=== PATIENT | female | born 1940 | race Caucasian/White ===

== ENCOUNTER 2021-12-03 13:15 | Inpatient (IN) | payer MEDICARE ==
[~2021-12-03] VITALS: Ht 165.1 cm; Wt 62.1 kg
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
[2021-12-03 15:03] VITALS: BP 136/80
[2021-12-03] MEDS ORDERED: MAG HYDROX/AL HYDROX/SIMETH 30 ML ORAL.SUSP PO PRN (15:15)
[2021-12-03] MEDS ORDERED: MAGNESIUM HYDROXIDE 2,400 MG/30 ML ORAL.SUSP. PO PRN (15:15)
[2021-12-03] MEDS ORDERED: METHYL SALICYLATE/MENTHOL TOPICAL OINTMENT 57GM TUBE. TP PRN (15:15)
[2021-12-03] MEDS ORDERED: DOCUSATE SODIUM 100 MG CAPSULE PO PRN (16:15)
[2021-12-03] MEDS ORDERED: DIPHENOXYLATE/ATROPINE TABLET. PO PRN (16:15)
[2021-12-03] MEDS ORDERED: SIMV40TA18 PO (16:57)
[2021-12-03] MEDS ORDERED: DIPH1TAB PO (16:57)
[2021-12-03] MEDS ORDERED: CHOL500016 PO (16:57)
[2021-12-03] MEDS ORDERED: GLUC1CAP18 PO (16:57)
[2021-12-03] MEDS ORDERED: MULT-445 PO (16:57)
[2021-12-03] MEDS ORDERED: LOSA50TA86 PO (16:57)
[2021-12-03] MEDS ORDERED: MEMA10TA PO (16:57)
[2021-12-03] MEDS ORDERED: DONE10TA7 PO (16:57)
[2021-12-03] MEDS ORDERED: DOCU-109 PO (16:57)
[2021-12-03] MEDS ORDERED: ACET1TAB33 PO (16:57)
[2021-12-03] MEDS ORDERED: ACETAMINOPHEN/CODEINE 300/30MG TABLET PO PRN (17:00)
[2021-12-03] MEDS: DONEPEZIL HCL 10 MG TABLET PO SCH (20:09)
[2021-12-03] MEDS: MEMANTINE 5 MG TABLET. PO SCH (20:09)
[2021-12-03 20:21] LABS: BASO % 1 % (0-3); EOS % 1 % (0-3); HEMATOCRIT 35.3 % (36.0-47.0); HEMOGLOBIN 11.9 g/dL (12.0-15.5); LYMPH # 1.7 x10^3/uL (1.0-4.8); LYMPH % 21 % (24-48); MEAN CORPUSCULAR HEMOGLOBIN 31 pg (25-35); MEAN CORPUSCULAR HGB CONC 34 g/dL (31-37); MEAN CORPUSCULAR VOLUME 91 fL (79-100); MONO # 0.6 x10^3/uL (0.0-1.1); MONO % 8 % (0-9); NEUT # 5.4 x10^3uL (1.8-7.7); NEUT % 70 % (31-73); PLATELET COUNT 331 x10^3/uL (140-400); RED BLOOD COUNT 3.87 x10^6/uL (3.50-5.40); RED CELL DISTRIBUTION WIDTH 12.6 % (11.5-14.5); WHITE BLOOD COUNT 7.8 x10^3/uL (4.0-11.0)
[2021-12-03 20:34] LABS: ALBUMIN 3.7 g/dL (3.4-5.0); ALBUMIN/GLOBULIN RATIO 1.1 (1.0-1.7); CALCIUM 8.7 mg/dL (8.5-10.1); CREATININE 0.8 mg/dL (0.6-1.0); GFR 68.5; MAGNESIUM 2.1 mg/dL (1.8-2.4); TOTAL BILIRUBIN 0.3 mg/dL (0.2-1.0); TOTAL PROTEIN 7.1 g/dL (6.4-8.2)
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
[2021-12-04 06:13] VITALS: BP 181/84
--- NOTE | 2021-12-04 08:02 | EKG ---
[address] [address] Test Date: 2021-12-04 Test Time: 07:59:32 Pat Name: VANESSA LE Department: Room: [address] [place] [address] Gender: F Loom Technician: : 1940 Requested By: MARYELLEN SPENCER Order Number: [id number] Reading MD: Warren Cline Measurements Intervals [place] Rate: 68 P: 114 OR: 130 QRS: -16 QRSD: 74 T: 37 QT: 404 QTc: 434 Interpretive Statements SINUS RHYTHM LEFT ATRIAL ABNORMALITY LEFTWARD AXIS Electronically Signed On 12-06-2021 15:08:14 CABLE MECHANIC by Warren Cline
[2021-12-04] MEDS: GLUCOSAMINE/CHOND 500/400MG CAPSULE PO SCH (08:55)
[2021-12-04] MEDS: CHOLECALCIFEROL (VITAMIN D3) 1,000 UNIT TABLET PO SCH (08:55)
[2021-12-04] MEDS: SIMVASTATIN 40 MG TABLET. PO SCH (08:55)
[2021-12-04] MEDS: LOSARTAN 50 MG TABLET. PO SCH (08:55)
[2021-12-04] MEDS: MULTIVITAMIN with MINERAL TABLET. PO SCH (08:55)
[2021-12-04 12:10] LABS: THYROXINE 8.5 ug/dL (4.5-12.0)
[2021-12-04 15:28] LABS: THYROID STIM HORMONE (TSH) 3.206 uIU/mL (0.358-3.740)
[2021-12-04 15:41] VITALS: BP 150/77
--- NOTE | 2021-12-04 18:30 | NUR ---
Patient has been disorganized, restless, and pleasantly confused throughout this shift. She has been resistive to cares, possibly related to chronic low back pain. Patient has had a poor appetite at meals but accepted Ensures when offered. Patient was social with peers and interactive with staff for most of the day, she did not answer MD's questions during rounds. Will continue to monitor and report to oncoming shift.
[2021-12-04 18:52] LABS: BACTERIA,URINE MANY /HPF (0-FEW); BILIRUBIN,URINE NEG (NEG); CLARITY,URINE TURBID; COLOR,URINE YELLOW; GLUCOSE,URINE NEG (NEG); NITRITE,URINE POS (NEG); RBC,URINE 0 /HPF (0-2); SQUAMOUS EPITHELIAL CELL,UR OCC /LPF; UROBILINOGEN,URINE 0.2 mg/dL (0.2 mg/dL)
[2021-12-04] MEDS: MEMANTINE 5 MG TABLET. PO SCH (20:47)
[2021-12-04] MEDS: DONEPEZIL HCL 10 MG TABLET PO SCH (20:47)
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
[2021-12-05 01:09] LABS: HEMOGLOBIN A1C 5.9 % (4.8-5.6)
[2021-12-05 06:31] VITALS: BP 154/79
[2021-12-05] MEDS: LOSARTAN 50 MG TABLET. PO SCH (09:15)
[2021-12-05] MEDS: CHOLECALCIFEROL (VITAMIN D3) 1,000 UNIT TABLET PO SCH (09:15)
[2021-12-05] MEDS: SIMVASTATIN 40 MG TABLET. PO SCH (09:15)
[2021-12-05] MEDS: MULTIVITAMIN with MINERAL TABLET. PO SCH (09:15)
[2021-12-05] MEDS: GLUCOSAMINE/CHOND 500/400MG CAPSULE PO SCH (09:15)
--- NOTE | 2021-12-05 09:58 | NUR ---
Nurse Note: Pt was too confused to understand how to take her medication for morning medications. After encouragement and time spent with pt, pt was still unable to understand how to take her medication, and was unable to take some due to being too confused.
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
--- NOTE | 2021-12-05 15:20 | NUR ---
Nurse Day Shift Note: Pt presents with pleasantly confused mood/affect. Pt is encouraged to eat her meals, however pt has a very difficult time grasping the concept to eat her food. Pt behaves agreeably, yet, appears to not understand what the food on her plate is for. Pt is encouraged to eat, and might take a small bite, but generally shows no interest in eating, due to being confused about what the food is for. Pt is given ensures, and encouraged to drink those. Pt is noted to spend time in her room and in the hallway during the day. Pt is low-weston on the unit. Pt slept 3.75 hours last night. Will continue to monitor.
[2021-12-05 16:04] VITALS: BP 150/90
[2021-12-05] MEDS: DONEPEZIL HCL 10 MG TABLET PO SCH (20:46)
[2021-12-05] MEDS: MEMANTINE 5 MG TABLET. PO SCH (20:46)
--- NOTE | 2021-12-05 22:19 | PN ---
DATE: 12/05/2021 SUBJECTIVE: The patient is seen today, met with the staff. Chart reviewed. Staff reports increased confusion, not able to follow directions, needing assistance with ADLs. Also difficult to redirect. OBSERVATION: VITAL SIGNS: Temperature 98.3, blood pressure 157/77, pulse 77, respirations 20, O2 sat 94%. GENERAL: Slept about 4 hours last night. The patient is somewhat unsteady, but able to walk. She is wandering and not able to think clearly. Affect inappropriate at times. The patient not able to follow directions. The patient also having problems with executive functioning. The patient is needing assistance with ADLs. LABORATORY DATA: The patient's lab reviewed. The patient's hemoglobin was 11.9. The patient's hemoglobin A1c was 5.9. The patient also has hyperlipidemia. The patient's urinalysis showed protein, trace of blood and 5-10, white cell count. CURRENT MEDICATIONS: The patient's current medications include Namenda 5 mg at night, Aricept 10 mg at night. The patient is not having any side effects. The patient has not received any p.r.n. medications. The patient is under observation. We will consider increasing Namenda. ASSESSMENT: 1. Major neurocognitive disorder, most likely Alzheimer's versus vascular with behavior problems. 2. Generalized anxiety disorder. PLAN: Continue treatment. LENGTH OF STAY: 7-10 days. JACEY ROCHA: Lesly TID: [id number]
--- NOTE | 2021-12-05 22:40 | NUR ---
Nursing Note Pt unable to understand what spoon or drinking cup are. Gets increasingly angry with attempts to help or show her how to eat and drink. Swats at cup and spoon, takes applesauce and rubs into her skin as though it is hand lotion. Pt talks in a word salad nothing at all intelligible. Very easily agitated and combative with staff.
[2021-12-06 06:15] VITALS: BP 143/86
[2021-12-06] MEDS: LOSARTAN 50 MG TABLET. PO SCH (09:02)
[2021-12-06] MEDS: MULTIVITAMIN with MINERAL TABLET. PO SCH (09:02)
[2021-12-06] MEDS: GLUCOSAMINE/CHOND 500/400MG CAPSULE PO SCH (09:02)
[2021-12-06] MEDS: CHOLECALCIFEROL (VITAMIN D3) 1,000 UNIT TABLET PO SCH (09:02)
[2021-12-06] MEDS: SIMVASTATIN 40 MG TABLET. PO SCH (09:02)
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
--- NOTE | 2021-12-06 12:08 | NUR ---
Nsg Note; UTI U?A culture results called to dr Orr who started pt on Levaquin PO x 5 days
[2021-12-06] MEDS: levoFLOXacin 250 MG TABLET PO SCH (13:33)
--- NOTE | 2021-12-06 14:00 | NUR ---
Nsg Note; Violeta is confused and unable to follow simple directions, such as put the pill in your mouth, take a drink of water, and swallow. I had to put the pill in her mouth, put the cup of water to her mouth, then she took a drink and swished it around without swallowing. It took many prompts and encouragement to swallow, which she did, then spit the pill out. I then crushed the pill and gave it to her in a bite of pudding which she then swallowed.
[2021-12-06 15:55] VITALS: BP 133/88
[2021-12-06] MEDS: MEMANTINE 5 MG TABLET. PO SCH (21:06)
[2021-12-06] MEDS: DONEPEZIL HCL 10 MG TABLET PO SCH (21:06)
--- NOTE | 2021-12-07 01:37 | PN ---
DATE: 12/06/2021 SUBJECTIVE: The patient was seen today, met with the staff, chart reviewed and also participated in the treatment review meeting. Staff reports she continues to be confused, inability to communicate tend to isolate herself and also wandering and unsteady gait, but no falls. The patient also needing assistance with ADLs. She is also incontinent of bladder and bowels. OBSERVATION: VITAL SIGNS: Temperature 98.2, blood pressure 143/86, pulse 84, respirations 16, O2 sat 94%. GENERAL: Slept about 7 hours last night. The patient's appetite decreased. LABORATORY DATA: The patient's lab reviewed. CURRENT MEDICATIONS: The patient's current medications include Levaquin 250 mg daily, Namenda 5 mg at night, Aricept 10 mg at night. She is also on Zocor 40 mg daily and vitamin D 5000 units daily. The patient is not having any side effects. The patient's symptom is mildly advanced dementia with severe cognitive deficits and also limited executive functions. The patient is needing assistance with ADLs. ASSESSMENT: 1. Major neurocognitive disorder, most likely Alzheimer's versus vascular with behavior problems: 2. Generalized anxiety disorder. PLAN: Continue with the treatment. LENGTH OF STAY: 7-10 days. RADHA/CARYN DR: Lesly TID: [id number]
--- NOTE | 2021-12-07 03:30 | NUR ---
Nursing Note The patient was disorganized but cooperative this shift. The patient took her medication crushed in pudding. The patient was alert to self only. The patient has not slept this shift; instead has laid in bed awake staring at the ceiling. The patient is currently awake laying in bed.
[2021-12-07] MEDS: levoFLOXacin 250 MG TABLET PO SCH (05:23)
[2021-12-07 06:27] VITALS: BP 161/99
[2021-12-07] MEDS: GLUCOSAMINE/CHOND 500/400MG CAPSULE PO SCH (08:02)
[2021-12-07] MEDS: CHOLECALCIFEROL (VITAMIN D3) 1,000 UNIT TABLET PO SCH (08:03)
[2021-12-07] MEDS: LOSARTAN 50 MG TABLET. PO SCH (08:03)
[2021-12-07] MEDS: SIMVASTATIN 40 MG TABLET. PO SCH (08:03)
[2021-12-07] MEDS: MULTIVITAMIN with MINERAL TABLET. PO SCH (08:03)
--- NOTE | 2021-12-07 11:25 | NUR ---
Nursing Not Pt lying in bed not eating, also is not up and busy this am like she had been. Eyes seem glassy, rimmed in red somewhat. Spoke with updated him on condition and confusion level.
--- NOTE | 2021-12-07 23:30 | NUR ---
Patient is in the hallway on assumption of care, sitting in a chair. She is very disorganized, confused. Answers to her name but cannot state her last name or . Instructed patient that she needed to return to her room, and she was unable to follow direction. She is fiddling around with a snack wrapper, trying to use it as a handheld mirror. She is compliant with physical assessments but is unable to answer most other assessment questions. Patient appears to be sleeping comfortably at present time. Will continue to monitor.
--- NOTE | 2021-12-08 02:46 | PN ---
DATE: 12/07/2021 SUBJECTIVE: Staff reports that the patient is staying in bed most of the time, not eating. The patient is confused, difficult to redirect. OBSERVATION: VITAL SIGNS: Temperature 97.6, blood pressure 161/99, pulse 75, respirations 22, O2 sat 96%. GENERAL: Slept about an hour last night. LABORATORY DATA: The patient's lab reviewed. No change from prior readings. CURRENT MEDICATIONS: Include levofloxacin 250 mg daily for UTI. The patient is still under observation, monitoring her behavior, not needing any psychotropic drugs, at this time control her behavior. ASSESSMENT: 1. Major neurocognitive disorder, most likely Alzheimer's versus vascular with behavior problems: 2. Generalized anxiety disorder. PLAN: To continue with treatment. LENGTH OF STAY: 7-[address] RADHA/CARYN DR: Lesly TID: [id number]
[2021-12-08] MEDS: levoFLOXacin 250 MG TABLET PO SCH ×2 (05:20→06:00)
[2021-12-08 06:28] VITALS: BP 155/94
[2021-12-08] MEDS: SIMVASTATIN 40 MG TABLET. PO SCH ×2 (07:21→20:11)
--- NOTE | 2021-12-08 07:21 | NUR ---
Simvastatin 40mg tablet held pending discussion with Dr Orr about changing dose schedule to HS.
[2021-12-08] MEDS: LOSARTAN 50 MG TABLET. PO SCH (07:35)
[2021-12-08] MEDS: GLUCOSAMINE/CHOND 500/400MG CAPSULE PO SCH (07:35)
--- NOTE | 2021-12-08 08:25 | NUR ---
Pt in bed sleeping. Breathing even, equal and unlabored. No signs of pain or distress. Shift assessment and medication administration pending. Will continue to monitor.
[2021-12-08] MEDS: MULTIVITAMIN with MINERAL TABLET. PO SCH (09:00)
[2021-12-08] MEDS: CHOLECALCIFEROL (VITAMIN D3) 1,000 UNIT TABLET PO SCH (09:00)
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
[2021-12-08 16:21] VITALS: BP 124/78
[2021-12-08] MEDS: LACTOBACILLUS RHAMNOSUS GG 1 CAPSULE. PO SCH (20:11)
[2021-12-08] MEDS: DOXYCYCLINE HYCLATE 100 MG TABLET PO SCH (20:12)
--- NOTE | 2021-12-08 23:15 | NUR ---
Patient is in the hallway on assumption of care, sitting in a chair. She is very disorganized, confused. Answers to her name but cannot state her last name or . She is compliant with physical assessments but is unable to answer most other assessment questions. Compliant with medications crushed in pudding. Patient appears to be sleeping comfortably at present time. Will continue to monitor.
[2021-12-09 06:42] VITALS: BP 147/85
[2021-12-09] MEDS: DOXYCYCLINE HYCLATE 100 MG TABLET PO SCH ×2 (08:57→20:22)
[2021-12-09] MEDS: MULTIVITAMIN with MINERAL TABLET. PO SCH (08:57)
[2021-12-09] MEDS: LOSARTAN 50 MG TABLET. PO SCH (08:57)
[2021-12-09] MEDS: CHOLECALCIFEROL (VITAMIN D3) 1,000 UNIT TABLET PO SCH (08:57)
[2021-12-09] MEDS: GLUCOSAMINE/CHOND 500/400MG CAPSULE PO SCH (08:58)
[2021-12-09] MEDS: LACTOBACILLUS RHAMNOSUS GG 1 CAPSULE. PO SCH ×2 (08:58→20:22)
--- NOTE | 2021-12-09 15:01 | NUR ---
Nsg Note; Violeta is very confused, knowing her first name only. When given a meal tray, she does not know how to use the utensils to get food to her mouth. We feed her but she will only take a few bites and sips of fluids. She has been awake and alert today, mostly sitting in the chair in her room or walking around the room. She self toilets
[2021-12-09 16:19] VITALS: BP 140/82
[2021-12-09] MEDS: SIMVASTATIN 40 MG TABLET. PO SCH (20:22)
--- NOTE | 2021-12-09 21:07 | PDOC ---
Exam Note: Donavon Note: Late entry for 12/08/2021. Please also refer to the separate dictated note~for this date of service dictated separately.~Patient seen individually. Discussed the patient with Nursing staff reviewed the chart.~Reviewed interim history and current functioning. Reviewed vital signs,~Labs/ Radiology~and current medic ations noted below. Continue current treatment with the changes noted in the dictated addendum note Assessment: Vital Signs/I&O: Vital Signs Date Time Temp Pulse Resp B/P (MAP) Pulse Ox O2 Delivery O2 Flow Rate FiO2 12/09/21 16:19 97.6 72 20 140/82 (101) 95 Room Air I & O 12/08/21 12/08/21 12/09/21 14:59 22:59 06:59 Intake Total 150 ml 120 ml Balance 150 ml 120 ml Current Medications: I have reviewed the current psychotropics carefully including drug interactions. Risk benefit ratio favors no change other than as noted in my dictated progress note. 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
--- NOTE | 2021-12-09 21:15 | PDOC ---
Exam Note: Donavon Note: Please also refer to the separate dictated note~for this date of service dictated separately.~Patient seen individually. Discussed the patient with Nursing staff reviewed the chart.~Reviewed interim history and current functioning. Reviewed vital signs,~Labs/ Radiology~and current medications noted below. Continue current treatment with the changes noted in the dictated addendum note Assessment: Vital Signs/I&O: Vital Signs Date Time Temp Pulse Resp B/P (MAP) Pulse Ox O2 Delivery O2 Flow Rate FiO2 12/09/21 16:19 97.6 72 20 140/82 (101) 95 Room Air I & O 12/08/21 12/08/21 12/09/21 14:59 22:59 06:59 Intake Total 150 ml 120 ml Balance 150 ml 120 ml Current Medications: Meds: Current Medications Medications (Trade) Dose Ordered Sig/Elias Route PRN Reason Start Time Stop Time Status Last Admin Dose Admin Acetaminophen (Tylenol) 650 mg PRN Q6HRS PRN PO MILD PAIN / TEMP > 100.3'F 12/03/21 15:15 Multi-Ingredient Ointment (Analgesic Nerinx) 1 andie PRN QID PRN TP MUSCLE PAIN 12/03/21 15:15 Al Hydroxide/Mg Hydroxide (Mylanta Plus Xs) 15 ml PRN AFTMEALHC PRN PO DYSPEPSIA 12/03/21 15:15 Magnesium Hydroxide (Milk Of Magnesia) 2,400 mg PRN QHS PRN PO 1st choice CONSTIPATION 12/03/21 15:15 Diphenoxylate HCl/ Atropine (Lomotil) 1 tab PRN BID PRN PO DIARRHEA 12/03/21 16:15 Docusate Sodium (Colace) 100 mg PRN DAILY PRN PO 2ND CHOICE CONSTIPATION 12/03/21 16:15 Donepezil HCl (Aricept) 10 mg QHS PO 12/03/21 21:00 12/07/21 11:37 DC 12/06/21 21:06 Losartan Potassium (Cozaar) 50 mg DAILY PO 12/04/21 09:00 12/09/21 08:57 Memantine (Namenda) 5 mg QHS PO 12/03/21 21:00 12/07/21 11:37 DC 12/06/21 21:06 Simvastatin (Zocor) 40 mg DAILY PO 12/04/21 09:00 12/08/21 12:13 DC 12/07/21 08:03 Vitamin D (Vitamin D3) 5,000 unit DAILY PO 12/04/21 09:00 12/09/21 08:57 Glucosamine/ Chondroitin (Glucosamine-Chondroitin 500/400mg) 1 cap DAILY PO 12/04/21 09:00 12/09/21 08:58 Multivitamins/ Calcium (Thera-M Plus) 1 tab DAILY PO 12/04/21 09:00 12/09/21 08:57 Acetaminophen/ Codeine Phosphate (Tylenol #3) 1 tab PRN BID PRN PO PAIN 12/03/21 17:00 Levofloxacin (Levaquin) 250 mg DAILY06 PO 12/06/21 12:15 12/08/21 12:13 DC 12/07/21 05:23 Lactobacillus Rhamnosus (Culturelle) 1 cap BID PO 12/08/21 21:00 12/09/21 20:22 Simvastatin (Zocor) 40 mg HS PO 12/08/21 21:00 12/09/21 20:22 Doxycycline Hyclate (Vibra-Tab) 100 mg BID PO 12/08/21 21:00 12/13/21 12:00 12/09/21 20:22 I have reviewed the current psychotropics carefully including drug interactions. Risk benefit ratio favors no change other than as noted in my dictated progress note. Diagnosis: Problems: (1) Impulse control disorder, unspecified (2) Anxiety disorder, unspecified (3) Dementia in Alzheimer's disease with depression (4) Dementia in Alzheimer's disease with delusions (5) Dementia of the Alzheimer's type with early onset with behavioral disturbance (6) Major neurocognitive disorder MANDY RODRIGUEZ MD Dec 09, 2021 21:15
--- NOTE | 2021-12-09 22:51 | NUR ---
Pt located in the hallway this evening. Pt restless and wandering cronin. Pt highly disorganized. Able to only answer to her name this evening. Compliant with crushed medications and assessment. Pt currently sleeping.
[2021-12-10 06:38] LABS: BASO # 0.1 x10^3/uL (0.0-0.2); BASO % 1 % (0-3); EOS # 0.1 x10^3/uL (0.0-0.7); EOS % 2 % (0-3); HEMATOCRIT 36.9 % (36.0-47.0); LYMPH # 2.3 x10^3/uL (1.0-4.8); LYMPH % 26 % (24-48); MEAN CORPUSCULAR HEMOGLOBIN 30 pg (25-35); MEAN CORPUSCULAR HGB CONC 33 g/dL (31-37); MEAN CORPUSCULAR VOLUME 92 fL (79-100); MONO # 0.7 x10^3/uL (0.0-1.1); MONO % 8 % (0-9); NEUT # 5.7 x10^3uL (1.8-7.7); NEUT % 65 % (31-73); PLATELET COUNT 352 x10^3/uL (140-400); RED BLOOD COUNT 4.01 x10^6/uL (3.50-5.40); RED CELL DISTRIBUTION WIDTH 12.8 % (11.5-14.5); WHITE BLOOD COUNT 8.9 x10^3/uL (4.0-11.0)
[2021-12-10 06:40] VITALS: BP 165/89
[2021-12-10 06:49] LABS: ALBUMIN 3.6 g/dL (3.4-5.0); ALBUMIN/GLOBULIN RATIO 1.1 (1.0-1.7); CALCIUM 8.8 mg/dL (8.5-10.1); CREATININE 0.9 mg/dL (0.6-1.0); GFR 59.8; POTASSIUM 3.6 mmol/L (3.5-5.1); TOTAL BILIRUBIN 0.3 mg/dL (0.2-1.0); TOTAL PROTEIN 6.8 g/dL (6.4-8.2)
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
[2021-12-10] MEDS: DOXYCYCLINE HYCLATE 100 MG TABLET PO SCH ×2 (09:21→20:57)
[2021-12-10] MEDS: MULTIVITAMIN with MINERAL TABLET. PO SCH (09:21)
[2021-12-10] MEDS: GLUCOSAMINE/CHOND 500/400MG CAPSULE PO SCH (09:21)
[2021-12-10] MEDS: LOSARTAN 50 MG TABLET. PO SCH (09:22)
[2021-12-10] MEDS: CHOLECALCIFEROL (VITAMIN D3) 1,000 UNIT TABLET PO SCH (09:22)
[2021-12-10] MEDS: LACTOBACILLUS RHAMNOSUS GG 1 CAPSULE. PO SCH ×2 (09:22→20:57)
--- NOTE | 2021-12-10 14:40 | NUR ---
Nursing note: Patient in room for assessment and medications. She is compliant with medications crushed in pudding. She is A/o to first name only, unable to voice last name or date of . Her called in the am, she didn't know what to do with the phone. Patient then began to make disruptive loud noises from her room, when approached by staff she denied making them. She was hitting cup on side table, when staff moved table away she smacked their arm. Patient denies pain/discomfort at this time. She walks independently in room, staff encourages her to use walker without success. She is currently laying awake in bed. Will continue to monitor. Addendum: 12/10/21 at 1550 by CINTIA INFANTE RN RN Patient continues to be isolated to her room due to COVID precautions.
[2021-12-10 15:43] VITALS: BP 118/53
[2021-12-10] MEDS: MIRTAZAPINE 7.5 MG TABLET. PO SCH (20:57)
[2021-12-10] MEDS: SIMVASTATIN 40 MG TABLET. PO SCH (20:57)
--- NOTE | 2021-12-10 20:58 | PDOC ---
Exam Note: Donavon Note: Please also refer to the separate dictated note~for this date of service dictated separately.~Patient seen individually. Discussed the patient with Nursing staff reviewed the chart.~Reviewed interim history and current functioning. Reviewed vital signs,~Labs/ Radiology~and current medications noted below. Continue current treatment with the changes noted in the dictated addendum note Assessment: Vital Signs/I&O: Vital Signs Date Time Temp Pulse Resp B/P (MAP) Pulse Ox O2 Delivery O2 Flow Rate FiO2 12/10/21 15:43 98.3 69 18 118/53 (74) 93 12/09/21 16:19 Room Air I & O 12/09/21 12/09/21 12/10/21 15:00 23:00 07:00 Intake Total 360 ml 480 ml Balance 360 ml 480 ml Labs: Laboratory Tests Test 12/10/21 06:23 White Blood Count 8.9 x10^3/uL (4.0-11.0) Red Blood Count 4.01 x10^6/uL (3.50-5.40) Hemoglobin 12.0 g/dL (12.0-15.5) Hematocrit 36.9 % (36.0-47.0) Mean Corpuscular Volume 92 fL (79-100) Mean Corpuscular Hemoglobin 30 pg (25-35) Mean Corpuscular Hemoglobin Concent 33 g/dL (31-37) Red Cell Distribution Width 12.8 % (11.5-14.5) Platelet Count 352 x10^3/uL (140-400) Neutrophils (%) (Auto) 65 % (31-73) Lymphocytes (%) (Auto) 26 % (24-48) Monocytes (%) (Auto) 8 % (0-9) Eosinophils (%) (Auto) 2 % (0-3) Basophils (%) (Auto) 1 % (0-3) Neutrophils # (Auto) 5.7 x10^3uL (1.8-7.7) Lymphocytes # (Auto) 2.3 x10^3/uL (1.0-4.8) Monocytes # (Auto) 0.7 x10^3/uL (0.0-1.1) Eosinophils # (Auto) 0.1 x10^3/uL (0.0-0.7) Basophils # (Auto) 0.1 x10^3/uL (0.0-0.2) Sodium Level 145 mmol/L (136-145) Potassium Level 3.6 mmol/L (3.5-5.1) Chloride Level 107 mmol/L (98-107) Carbon Dioxide Level 30 mmol/L (21-32) Anion Gap 8 (6-14) Blood Urea Nitrogen 32 mg/dL (7-20) H Creatinine 0.9 mg/dL (0.6-1.0) Estimated GFR (Cockcroft-Gault) 59.8 BUN/Creatinine Ratio 36 (6-20) H Glucose Level 101 mg/dL (70-99) H Calcium Level 8.8 mg/dL (8.5-10.1) Total Bilirubin 0.3 mg/dL (0.2-1.0) Aspartate Amino Transferase (AST) 15 U/L (15-37) Alanine Aminotransferase (ALT) 15 U/L (14-59) Alkaline Phosphatase 105 U/L (46-116) Total Protein 6.8 g/dL (6.4-8.2) Albumin 3.6 g/dL (3.4-5.0) Albumin/Globulin Ratio 1.1 (1.0-1.7) Current Medications: Meds: Laboratory Tests Test 12/10/21 06:23 White Blood Count 8.9 x10^3/uL Red Blood Count 4.01 x10^6/uL Hemoglobin 12.0 g/dL Hematocrit 36.9 % Mean Corpuscular Volume 92 fL Mean Corpuscular Hemoglobin 30 pg Mean Corpuscular Hemoglobin Concent 33 g/dL Red Cell Distribution Width 12.8 % Platelet Count 352 x10^3/uL Neutrophils (%) (Auto) 65 % Lymphocytes (%) (Auto) 26 % Monocytes (%) (Auto) 8 % Eosinophils (%) (Auto) 2 % Basophils (%) (Auto) 1 % Neutrophils # (Auto) 5.7 x10^3uL Lymphocytes # (Auto) 2.3 x10^3/uL Monocytes # (Auto) 0.7 x10^3/uL Eosinophils # (Auto) 0.1 x10^3/uL Basophils # (Auto) 0.1 x10^3/uL Sodium Level 145 mmol/L Potassium Level 3.6 mmol/L Chloride Level 107 mmol/L Carbon Dioxide Level 30 mmol/L Anion Gap 8 Blood Urea Nitrogen 32 mg/dL Creatinine 0.9 mg/dL Estimated GFR (Cockcroft-Gault) 59.8 BUN/Creatinine Ratio 36 Glucose Level 101 mg/dL Calcium Level 8.8 mg/dL Total Bilirubin 0.3 mg/dL Aspartate Amino Transf (AST/SGOT) 15 U/L Alanine Aminotransferase (ALT/SGPT) 15 U/L Alkaline Phosphatase 105 U/L Total Protein 6.8 g/dL Albumin 3.6 g/dL Albumin/Globulin Ratio 1.1 Current Medications Medications (Trade) Dose Ordered Sig/Elias Route PRN Reason Start Time Stop Time Status Last Admin Dose Admin Acetaminophen (Tylenol) 650 mg PRN Q6HRS PRN PO MILD PAIN / TEMP > 100.3'F 12/03/21 15:15 Multi-Ingredient Ointment (Analgesic [place]) 1 andie PRN QID PRN TP MUSCLE PAIN 12/03/21 15:15 Al Hydroxide/Mg Hydroxide (Mylanta Plus Xs) 15 ml PRN AFTMEALHC PRN PO DYSPEPSIA 12/03/21 15:15 Magnesium Hydroxide (Milk Of Magnesia) 2,400 mg PRN QHS PRN PO 1st choice CONSTIPATION 12/03/21 15:15 Diphenoxylate HCl/ Atropine (Lomotil) 1 tab PRN BID PRN PO DIARRHEA 12/03/21 16:15 Docusate Sodium (Colace) 100 mg PRN DAILY PRN PO 2ND CHOICE CONSTIPATION 12/03/21 16:15 Donepezil HCl (Aricept) 10 mg QHS PO 12/03/21 21:00 12/07/21 11:37 DC 12/06/21 21:06 Losartan Potassium (Cozaar) 50 mg DAILY PO 12/04/21 09:00 12/10/21 09:22 Memantine (Namenda) 5 mg QHS PO 12/03/21 21:00 12/07/21 11:37 DC 12/06/21 21:06 Simvastatin (Zocor) 40 mg DAILY PO 12/04/21 09:00 12/08/21 12:13 DC 12/07/21 08:03 Vitamin D (Vitamin D3) 5,000 unit DAILY PO 12/04/21 09:00 12/10/21 09:22 Glucosamine/ Chondroitin (Glucosamine-Chondroitin 500/400mg) 1 cap DAILY PO 12/04/21 09:00 12/10/21 09:21 Multivitamins/ Calcium (Thera-M Plus) 1 tab DAILY PO 12/04/21 09:00 12/10/21 09:21 Acetaminophen/ Codeine Phosphate (Tylenol #3) 1 tab PRN BID PRN PO PAIN 12/03/21 17:00 Levofloxacin (Levaquin) 250 mg DAILY06 PO 12/06/21 12:15 12/08/21 12:13 DC 12/07/21 05:23 Lactobacillus Rhamnosus (Culturelle) 1 cap BID PO 12/08/21 21:00 12/10/21 20:57 Simvastatin (Zocor) 40 mg HS PO 12/08/21 21:00 12/10/21 20:57 Doxycycline Hyclate (Vibra-Tab) 100 mg BID PO 12/08/21 21:00 12/13/21 12:00 12/10/21 20:57 Olanzapine (ZyPREXA ZYDIS) 2.5 mg PRN Q2HR PRN PO PSYCHOSIS 12/10/21 12:00 Mirtazapine (Remeron) 7.5 mg QHS PO 12/10/21 21:00 12/10/21 20:57 Trazodone HCl (Desyrel) 50 mg PRN QHS PRN PO INSOMNIA 12/10/21 12:00 Current Medications Medications (Trade) Dose Ordered Sig/Elias Route PRN Reason Start Time Stop Time Status Last Admin Dose Admin Mirtazapine (Remeron) 7.5 mg QHS PO 12/10/21 21:00 12/10/21 20:57 I have reviewed the current psychotropics carefully including drug interactions. Risk benefit ratio favors no change other than as noted in my dictated progress note. Diagnosis: Problems: (1) Impulse control disorder, unspecified (2) Anxiety disorder, unspecified (3) Dementia in Alzheimer's disease with depression (4) Dementia in Alzheimer's disease with delusions (5) Dementia of the Alzheimer's type with early onset with behavioral disturbance (6) Major neurocognitive disorder MANDY RODRIGUEZ MD Dec 10, 2021 20:58
[2021-12-11 05:51] VITALS: BP 171/80
--- NOTE | 2021-12-11 06:08 | NUR ---
Pt has been in her room sleeping most of the night. She took meds crushed in applesauce without difficulty. She is confused, doesn't answer questions and was resistive to labs and VS then quickly went back to sleeep
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
[2021-12-11] MEDS: LOSARTAN 50 MG TABLET. PO SCH (08:56)
[2021-12-11] MEDS: LACTOBACILLUS RHAMNOSUS GG 1 CAPSULE. PO SCH ×2 (08:56→19:26)
[2021-12-11] MEDS: CHOLECALCIFEROL (VITAMIN D3) 1,000 UNIT TABLET PO SCH (08:56)
[2021-12-11] MEDS: DOXYCYCLINE HYCLATE 100 MG TABLET PO SCH ×2 (08:56→19:26)
[2021-12-11] MEDS: MULTIVITAMIN with MINERAL TABLET. PO SCH (08:57)
[2021-12-11] MEDS: GLUCOSAMINE/CHOND 500/400MG CAPSULE PO SCH (08:57)
--- NOTE | 2021-12-11 10:40 | NUR ---
PHILLIP received call from Vinny, pt /DPOA, who wanted to see how pt is doing. SW went over behaviors and noted that she does have a UTI and will finish the last dose in a couple of days. Vinny asked how much longer before pt could discharge back home and PHILLIP noted that with the positive Covid cases, we were not able to discharge anyone until next week on the . Vinny then became agitated and yelled that he is not okay with this and it's "horseshit" that regulations are even put into place. "I want her home now and you guys have no idea what I'm going through. I can't see her and now your telling me I have another 10 days before I can have my home. I am not okay with this and I dont' give a shit what the CDC guidelines are". PHILLIP attempted to empathize as much as possible. Vinny thanked PHILLIP for the report and hung up the phone.
--- NOTE | 2021-12-11 13:26 | NUR ---
PHILLIP received a call from Vinny, pt /DPOA, who wanted to apologize to PHILLIP about his outburst earlier. Vinny noted "I am just frustrated and ended up taking it out on you and that is not okay. I'm sorry". PHILLIP accepted Vinny apology and empathized with him as PHILLIP noted his frustrations with not being able to come see pt and his upset with Covid regulations. Vniny wants to make sure that pt is discharge on the and not a day later as he wants pt to come home [facility]. PHILLIP informed Vinny that as long as there were no more positives, his wish to pick pt up on the should not be an issue. PHILLIP went over what the discharge would look like and he noted that he would like to make sure he can pick pt up after lunch. PHILLIP will check in with Vinny later this week and will also plan to give him an update on pt medication changes if any arise.
[2021-12-11 16:18] VITALS: BP 131/71
--- NOTE | 2021-12-11 16:49 | NUR ---
Nurse Day Shift Note: Pt presents with disorganized mood/affect. Pt is disorganized and confused. Pt received phone calls from her today. When going to retrieve the remote phone from pt, staff could not find the phone. The phone was later discovered by staff in pts brief. Pt is medication compliant. Pt slept 5 hours last night. Pt continues to be confused about food and how to eat it. Will continue to encourage pt to eat meals. Will continue to monitor.
[2021-12-11] MEDS: SIMVASTATIN 40 MG TABLET. PO SCH (19:26)
[2021-12-11] MEDS: MIRTAZAPINE 7.5 MG TABLET. PO SCH (19:26)
--- NOTE | 2021-12-11 21:14 | PDOC ---
Exam Note: Donavon Note: Please also refer to the separate dictated note~for this date of service dictated separately.~Patient seen individually. Discussed the patient with Nursing staff reviewed the chart.~Reviewed interim history and current functioning. Reviewed vital signs,~Labs/ Radiology~and current medications noted below. Continue current treatment with the changes noted in the dictated addendum note Assessment: Vital Signs/I&O: Vital Signs Date Time Temp Pulse Resp B/P (MAP) Pulse Ox O2 Delivery O2 Flow Rate FiO2 12/11/21 16:18 97.6 63 18 131/71 (91) 96 12/09/21 16:19 Room Air I & O 12/10/21 12/10/21 12/11/21 15:00 23:00 07:00 Intake Total 240 ml 460 ml Balance 240 ml 460 ml Labs: Laboratory Tests Test 12/11/21 06:00 SARS-CoV-2 (PCR) Not detected (NOT DETECTD) Current Medications: Meds: Laboratory Tests Test 12/11/21 06:00 Coronavirus (COVID-19)(PCR) Not detected Current Medications Medications (Trade) Dose Ordered Sig/Elias Route PRN Reason Start Time Stop Time Status Last Admin Dose Admin Acetaminophen (Tylenol) 650 mg PRN Q6HRS PRN PO MILD PAIN / TEMP > 100.3'F 12/03/21 15:15 Multi-Ingredient Ointment (Analgesic [place]) 1 andie PRN QID PRN TP MUSCLE PAIN 12/03/21 15:15 Al Hydroxide/Mg Hydroxide (Mylanta Plus Xs) 15 ml PRN AFTMEALHC PRN PO DYSPEPSIA 12/03/21 15:15 Magnesium Hydroxide (Milk Of Magnesia) 2,400 mg PRN QHS PRN PO 1st choice CONSTIPATION 12/03/21 15:15 Diphenoxylate HCl/ Atropine (Lomotil) 1 tab PRN BID PRN PO DIARRHEA 12/03/21 16:15 Docusate Sodium (Colace) 100 mg PRN DAILY PRN PO 2ND CHOICE CONSTIPATION 12/03/21 16:15 Donepezil HCl (Aricept) 10 mg QHS PO 12/03/21 21:00 12/07/21 11:37 DC 12/06/21 21:06 Losartan Potassium (Cozaar) 50 mg DAILY PO 12/04/21 09:00 12/11/21 08:56 Memantine (Namenda) 5 mg QHS PO 12/03/21 21:00 12/07/21 11:37 DC 12/06/21 21:06 Simvastatin (Zocor) 40 mg DAILY PO 12/04/21 09:00 12/08/21 12:13 DC 12/07/21 08:03 Vitamin D (Vitamin D3) 5,000 unit DAILY PO 12/04/21 09:00 12/11/21 08:56 Glucosamine/ Chondroitin (Glucosamine-Chondroitin 500/400mg) 1 cap DAILY PO 12/04/21 09:00 12/11/21 08:57 Multivitamins/ Calcium (Thera-M Plus) 1 tab DAILY PO 12/04/21 09:00 12/11/21 08:57 Acetaminophen/ Codeine Phosphate (Tylenol #3) 1 tab PRN BID PRN PO PAIN 12/03/21 17:00 Levofloxacin (Levaquin) 250 mg DAILY06 PO 12/06/21 12:15 12/08/21 12:13 DC 12/07/21 05:23 Lactobacillus Rhamnosus (Culturelle) 1 cap BID PO 12/08/21 21:00 12/11/21 19:26 Simvastatin (Zocor) 40 mg HS PO 12/08/21 21:00 12/11/21 19:26 Doxycycline Hyclate (Vibra-Tab) 100 mg BID PO 12/08/21 21:00 12/13/21 12:00 12/11/21 19:26 Olanzapine (ZyPREXA ZYDIS) 2.5 mg PRN Q2HR PRN PO PSYCHOSIS 12/10/21 12:00 Mirtazapine (Remeron) 7.5 mg QHS PO 12/10/21 21:00 12/11/21 19:26 Trazodone HCl (Desyrel) 50 mg PRN QHS PRN PO INSOMNIA 12/10/21 12:00 I have reviewed the current psychotropics carefully including drug interactions. Risk benefit ratio favors no change other than as noted in my dictated progress note. Diagnosis: Problems: (1) Impulse control disorder, unspecified (2) Anxiety disorder, unspecified (3) Dementia in Alzheimer's disease with depression (4) Dementia in Alzheimer's disease with delusions (5) Dementia of the Alzheimer's type with early onset with behavioral disturbanc e (6) Major neurocognitive disorder MANDY RODRIGUEZ MD Dec 11, 2021 21:14
[2021-12-12 06:10] VITALS: BP 143/85
--- NOTE | 2021-12-12 06:40 | PDOC ---
Exam Note: Donavon Note: This note is a late entry for 12/11/2021 covers elements not covered in my initial note. Subjective: The patient was seen on telehealth rounds due to COVID-19 pandemic on the unit in the evening of 12/11/2021 with Audrey NATH, discussed and reviewed the chart. The patient slept 5 hours previous night. She is extremely confused, unable to recognize food or eat one time at a time. If she is given one item it seems a little less confusing for her. Her called frequently. [employer] had called me but her is quite clear he wants the patient back home on 12/20 and we discussed this. She is not interactive, very confused. Review of Systems: Ambulation impaired, with walker. No CV, , pulmonary, eye, ENT system symptoms on review. Reliability poor. Mental Status Exam: The patient is oriented to herself. Insight and judgment, recent and remote memory, attention and concentration, fund of knowledge is poor consistent with her diagnoses. Laboratory Data: Reviewed. Impression: Major neurocognitive disorder, Alzheimer, vascular with delusion, depression behavioral disturbance. Anxiety disorder unspecified. Impulse control disorder unspecified. Plan: No change from initial note. Assessment: Vital Signs/I&O: Vital Signs Date Time Temp Pulse Resp B/P (MAP) Pulse Ox O2 Delivery O2 Flow Rate FiO2 12/12/21 06:10 97.9 93 18 143/85 (104) 94 12/09/21 16:19 Room Air I & O 12/11/21 12/11/21 12/12/21 15:00 23:00 07:00 Intake Total 200 ml 100 ml Balance 200 ml 100 ml Current Medications: Meds: Current Medications Medications (Trade) Dose Ordered Sig/Elias Route PRN Reason Start Time Stop Time Status Last Admin Dose Admin Acetaminophen (Tylenol) 650 mg PRN Q6HRS PRN PO MILD PAIN / TEMP > 100.3'F 12/03/21 15:15 Multi-Ingredient Ointment (Analgesic [place]) 1 andie PRN QID PRN TP MUSCLE PAIN 12/03/21 15:15 Al Hydroxide/Mg Hydroxide (Mylanta Plus Xs) 15 ml PRN AFTMEALHC PRN PO DYSPEPSIA 12/03/21 15:15 Magnesium Hydroxide (Milk Of Magnesia) 2,400 mg PRN QHS PRN PO 1st choice CONSTIPATION 12/03/21 15:15 Diphenoxylate HCl/ Atropine (Lomotil) 1 tab PRN BID PRN PO DIARRHEA 12/03/21 16:15 Docusate Sodium (Colace) 100 mg PRN DAILY PRN PO 2ND CHOICE CONSTIPATION 12/03/21 16:15 Donepezil HCl (Aricept) 10 mg QHS PO 12/03/21 21:00 12/07/21 11:37 DC 12/06/21 21:06 Losartan Potassium (Cozaar) 50 mg DAILY PO 12/04/21 09:00 12/11/21 08:56 Memantine (Namenda) 5 mg QHS PO 12/03/21 21:00 12/07/21 11:37 DC 12/06/21 21:06 Simvastatin (Zocor) 40 mg DAILY PO 12/04/21 09:00 12/08/21 12:13 DC 12/07/21 08:03 Vitamin D (Vitamin D3) 5,000 unit DAILY PO 12/04/21 09:00 12/11/21 08:56 Glucosamine/ Chondroitin (Glucosamine-Chondroitin 500/400mg) 1 cap DAILY PO 12/04/21 09:00 12/11/21 08:57 Multivitamins/ Calcium (Thera-M Plus) 1 tab DAILY PO 12/04/21 09:00 12/11/21 08:57 Acetaminophen/ Codeine Phosphate (Tylenol #3) 1 tab PRN BID PRN PO PAIN 12/03/21 17:00 Levofloxacin (Levaquin) 250 mg DAILY06 PO 12/06/21 12:15 12/08/21 12:13 DC 12/07/21 05:23 Lactobacillus Rhamnosus (Culturelle) 1 cap BID PO 12/08/21 21:00 12/11/21 19:26 Simvastatin (Zocor) 40 mg HS PO 12/08/21 21:00 12/11/21 19:26 Doxycycline Hyclate (Vibra-Tab) 100 mg BID PO 12/08/21 21:00 12/13/21 12:00 12/11/21 19:26 Olanzapine (ZyPREXA ZYDIS) 2.5 mg PRN Q2HR PRN PO PSYCHOSIS 12/10/21 12:00 Mirtazapine (Remeron) 7.5 mg QHS PO 12/10/21 21:00 12/11/21 19:26 Trazodone HCl (Desyrel) 50 mg PRN QHS PRN PO INSOMNIA 12/10/21 12:00 I have reviewed the current psychotropics carefully including drug interactions. Risk benefit ratio favors no change other than as noted in my dictated progress note. Diagnosis: Problems: (1) Impulse control disorder, unspecified (2) Anxiety disorder, unspecified (3) Dementia in Alzheimer's disease with depression (4) Dementia in Alzheimer's disease with delusions (5) Dementia of the Alzheimer's type with early onset with behavioral disturbance (6) Major neurocognitive disorder MANDY RODRIGUEZ MD Dec 12, 2021 06:40
[2021-12-12] MEDS: LOSARTAN 50 MG TABLET. PO SCH (08:11)
[2021-12-12] MEDS: MULTIVITAMIN with MINERAL TABLET. PO SCH (08:11)
[2021-12-12] MEDS: LACTOBACILLUS RHAMNOSUS GG 1 CAPSULE. PO SCH ×2 (08:11→20:36)
[2021-12-12] MEDS: DOXYCYCLINE HYCLATE 100 MG TABLET PO SCH ×2 (08:11→20:36)
[2021-12-12] MEDS: GLUCOSAMINE/CHOND 500/400MG CAPSULE PO SCH (08:11)
[2021-12-12] MEDS: CHOLECALCIFEROL (VITAMIN D3) 1,000 UNIT TABLET PO SCH (08:12)
[2021-12-12 15:21] VITALS: BP 159/85
--- NOTE | 2021-12-12 18:21 | NUR ---
Patient has been mostly drowsy, withdrawn to her bed, and poor appetite today. She was more alert after supper but still ate very little at supper. Will continue to monitor and report to oncoming shift.
[2021-12-12] MEDS: MIRTAZAPINE 7.5 MG TABLET. PO SCH (20:36)
[2021-12-12] MEDS: SIMVASTATIN 40 MG TABLET. PO SCH (20:36)
[2021-12-12] MEDS: SERTRALINE 25 MG TABLET. PO SCH (20:36)
--- NOTE | 2021-12-12 20:57 | PDOC ---
Exam Note: Donavon Note: Please also refer to the separate dictated note~for this date of service dictated separately.~Patient seen individually. Discussed the patient with Nursing staff reviewed the chart.~Reviewed interim history and current functioning. Reviewed vital signs,~Labs/ Radiology~and current medications noted below. Continue current treatment with the changes noted in the dictated addendum note Assessment: Vital Signs/I&O: Vital Signs Date Time Temp Pulse Resp B/P (MAP) Pulse Ox O2 Delivery O2 Flow Rate FiO2 12/12/21 15:21 97.6 87 16 159/85 (109) 95 12/09/21 16:19 Room Air I & O 12/11/21 12/11/21 12/12/21 15:00 23:00 07:00 Intake Total 200 ml 100 ml Balance 200 ml 100 ml Current Medications: Meds: Current Medications Medications (Trade) Dose Ordered Sig/Elias Route PRN Reason Start Time Stop Time Status Last Admin Dose Admin Sertraline HCl (Zoloft) 25 mg QHS PO 12/12/21 21:00 12/14/21 23:00 12/12/21 20:36 I have reviewed the current psychotropics carefully including drug interactions. Risk benefit ratio favors no change other than as noted in my dictated progress note. Diagnosis: Problems: (1) Impulse control disorder, unspecified (2) Anxiety disorder, unspecified (3) Dementia in Alzheimer's disease with depression (4) Dementia in Alzheimer's disease with delusions (5) Dementia of the Alzheimer's type with early onset with behavioral disturbance (6) Major neurocognitive disorder MANDY RODRIGUEZ MD Dec 12, 2021 20:57
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
[2021-12-13 06:37] VITALS: BP 146/89
[2021-12-13] MEDS: DOXYCYCLINE HYCLATE 100 MG TABLET PO SCH (08:11)
[2021-12-13] MEDS: MULTIVITAMIN with MINERAL TABLET. PO SCH (08:11)
[2021-12-13] MEDS: LOSARTAN 50 MG TABLET. PO SCH (08:11)
[2021-12-13] MEDS: GLUCOSAMINE/CHOND 500/400MG CAPSULE PO SCH (08:11)
[2021-12-13] MEDS: CHOLECALCIFEROL (VITAMIN D3) 1,000 UNIT TABLET PO SCH (08:11)
[2021-12-13] MEDS: LACTOBACILLUS RHAMNOSUS GG 1 CAPSULE. PO SCH ×2 (08:11→20:28)
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
[2021-12-13] MEDS: ACETAMINOPHEN 325 MG TABLET PO PRN (15:35)
[2021-12-13 16:17] VITALS: BP 128/84
[2021-12-13] MEDS: QUEtiapine 25 MG TABLET. PO SCH (17:38)
[2021-12-13] MEDS: MIRTAZAPINE 7.5 MG TABLET. PO SCH (20:28)
[2021-12-13] MEDS: SERTRALINE 25 MG TABLET. PO SCH (20:29)
[2021-12-13] MEDS: SIMVASTATIN 40 MG TABLET. PO SCH (20:29)
--- NOTE | 2021-12-13 21:12 | PDOC ---
Exam Note: Donavon Note: This note is a late entry for 12/12/2021 covers elements not covered in my initial note. Subjective: The patient was seen on telehealth rounds due to COVID-19 pandemic on the unit in the evening of 12/12/2021 with Jace NATH, discussed and reviewed the chart. The patient slept 8-1/4 hours previous night. Overall she has been confused, resistive with medications. Appetite remains poor. She had some Ensure supplement. Review of Systems: Ambulation impaired, with walker. No CV, , pulmonary, eye, ENT system symptoms on review. Reliability poor. Mental Status Exam: The patient is oriented to herself. Insight and judgment, recent and remote memory, attention and concentration, fund of knowledge is poor consistent with her diagnoses. Laboratory Data: Reviewed. Impression: Major neurocognitive disorder, Alzheimer, vascular with delusion, depression behavioral disturbance. Anxiety disorder unspecified. Impulse control disorder unspecified. Plan: No change from initial note. At this stage the patients dementia there is probably little benefit from using Aricept and Namenda and we will go ahead and stop it. Maintain Remeron, trazodone, Zyprexa p.r.n. Start Zoloft 25 mg a day for 3 days, then 50 mg a day thereafter. Reviewed drug interactions and risk-benefit ratio. Assessment: Vital Signs/I&O: Vital Signs Date Time Temp Pulse Resp B/P (MAP) Pulse Ox O2 Delivery O2 Flow Rate FiO2 12/13/21 16:17 97.4 95 16 128/84 (99) Room Air 12/13/21 06:37 94 I & O 12/12/21 12/12/21 12/13/21 14:59 22:59 06:59 Intake Total 120 ml 360 ml Balance 120 ml 360 ml Current Medications: Meds: Current Medications Medications (Trade) Dose Ordered Sig/Elias Route PRN Reason Start Time Stop Time Status Last Admin Dose Admin Acetaminophen (Tylenol) 650 mg PRN Q6HRS PRN PO MILD PAIN / TEMP > 100.3'F 12/03/21 15:15 12/13/21 15:35 Multi-Ingredient Ointment (Analgesic [place]) 1 andie PRN QID PRN TP MUSCLE PAIN 12/03/21 15:15 Al Hydroxide/Mg Hydroxide (Mylanta Plus Xs) 15 ml PRN AFTMEALHC PRN PO DYSPEPSIA 12/03/21 15:15 Magnesium Hydroxide (Milk Of Magnesia) 2,400 mg PRN QHS PRN PO 1st choice CONSTIPATION 12/03/21 15:15 Diphenoxylate HCl/ Atropine (Lomotil) 1 tab PRN BID PRN PO DIARRHEA 12/03/21 16:15 Docusate Sodium (Colace) 100 mg PRN DAILY PRN PO 2ND CHOICE CONSTIPATION 12/03/21 16:15 Donepezil HCl (Aricept) 10 mg QHS PO 12/03/21 21:00 12/07/21 11:37 DC 12/06/21 21:06 Losartan Potassium (Cozaar) 50 mg DAILY PO 12/04/21 09:00 12/13/21 08:11 Memantine (Namenda) 5 mg QHS PO 12/03/21 21:00 12/07/21 11:37 DC 12/06/21 21:06 Simvastatin (Zocor) 40 mg DAILY PO 12/04/21 09:00 12/08/21 12:13 DC 12/07/21 08:03 Vitamin D (Vitamin D3) 5,000 unit DAILY PO 12/04/21 09:00 12/13/21 08:11 Glucosamine/ Chondroitin (Glucosamine-Chondroitin 500/400mg) 1 cap DAILY PO 12/04/21 09:00 12/13/21 08:11 Multivitamins/ Calcium (Thera-M Plus) 1 tab DAILY PO 12/04/21 09:00 12/13/21 08:11 Acetaminophen/ Codeine Phosphate (Tylenol #3) 1 tab PRN BID PRN PO PAIN 12/03/21 17:00 Levofloxacin (Levaquin) 250 mg DAILY06 PO 12/06/21 12:15 12/08/21 12:13 DC 12/07/21 05:23 Lactobacillus Rhamnosus (Culturelle) 1 cap BID PO 12/08/21 21:00 12/13/21 20:28 Simvastatin (Zocor) 40 mg HS PO 12/08/21 21:00 12/13/21 20:29 Doxycycline Hyclate (Vibra-Tab) 100 mg BID PO 12/08/21 21:00 12/13/21 12:00 DC 12/13/21 08:11 Olanzapine (ZyPREXA ZYDIS) 2.5 mg PRN Q2HR PRN PO PSYCHOSIS 12/10/21 12:00 Mirtazapine (Remeron) 7.5 mg QHS PO 12/10/21 21:00 12/13/21 20:28 Trazodone HCl (Desyrel) 50 mg PRN QHS PRN PO INSOMNIA 12/10/21 12:00 Sertraline HCl (Zoloft) 25 mg QHS PO 12/12/21 21:00 12/14/21 23:00 12/13/21 20:29 Sertraline HCl (Zoloft) 50 mg QHS PO 12/15/21 21:00 Quetiapine Fumarate (SEROquel) 12.5 mg 1700 PO 12/13/21 17:00 12/13/21 17:38 Current Medications Medications (Trade) Dose Ordered Sig/Elias Route PRN Reason Start Time Stop Time Status Last Admin Dose Admin Quetiapine Fumarate (SEROquel) 12.5 mg 1700 PO 12/13/21 17:00 12/13/21 17:38 I have reviewed the current psychotropics carefully including drug interactions. Risk benefit ratio favors no change other than as noted in my dictated progress note. Diagnosis: Problems: (1) Impulse control disorder, unspecified (2) Anxiety disorder, unspecified (3) Dementia in Alzheimer's disease with depression (4) Dementia in Alzheimer's disease with delusions (5) Dementia of the Alzheimer's type with early onset with behavioral disturbance (6) Major neurocognitive disorder MANDY RODRIGUEZ MD Dec 13, 2021 21:12
--- NOTE | 2021-12-13 21:13 | PDOC ---
Exam Note: Donavon Note: Please also refer to the separate dictated note~for this date of service dictated separately.~Patient seen individually. Discussed the patient with Nursing staff reviewed the chart.~Reviewed interim history and current functioning. Reviewed vital signs,~Labs/ Radiology~and current medications noted below. Continue current treatment with the changes noted in the dictated addendum note Assessment: Vital Signs/I&O: Vital Signs Date Time Temp Pulse Resp B/P (MAP) Pulse Ox O2 Delivery O2 Flow Rate FiO2 12/13/21 16:17 97.4 95 16 128/84 (99) Room Air 12/13/21 06:37 94 I & O 12/12/21 12/12/21 12/13/21 15:00 23:00 07:00 Intake Total 120 ml 360 ml Balance 120 ml 360 ml Current Medications: Meds: Current Medications Medications (Trade) Dose Ordered Sig/Elias Route PRN Reason Start Time Stop Time Status Last Admin Dose Admin Acetaminophen (Tylenol) 650 mg PRN Q6HRS PRN PO MILD PAIN / TEMP > 100.3'F 12/03/21 15:15 12/13/21 15:35 Multi-Ingredient Ointment (Analgesic [place]) 1 andie PRN QID PRN TP MUSCLE PAIN 12/03/21 15:15 Al Hydroxide/Mg Hydroxide (Mylanta Plus Xs) 15 ml PRN AFTMEALHC PRN PO DYSPEPSIA 12/03/21 15:15 Magnesium Hydroxide (Milk Of Magnesia) 2,400 mg PRN QHS PRN PO 1st choice CONSTIPATION 12/03/21 15:15 Diphenoxylate HCl/ Atropine (Lomotil) 1 tab PRN BID PRN PO DIARRHEA 12/03/21 16:15 Docusate Sodium (Colace) 100 mg PRN DAILY PRN PO 2ND CHOICE CONSTIPATION 12/03/21 16:15 Donepezil HCl (Aricept) 10 mg QHS PO 12/03/21 21:00 12/07/21 11:37 DC 12/06/21 21:06 Losartan Potassium (Cozaar) 50 mg DAILY PO 12/04/21 09:00 12/13/21 08:11 Memantine (Namenda) 5 mg QHS PO 12/03/21 21:00 12/07/21 11:37 DC 12/06/21 21:06 Simvastatin (Zocor) 40 mg DAILY PO 12/04/21 09:00 12/08/21 12:13 DC 12/07/21 08:03 Vitamin D (Vitamin D3) 5,000 unit DAILY PO 12/04/21 09:00 12/13/21 08:11 Glucosamine/ Chondroitin (Glucosamine-Chondroitin 500/400mg) 1 cap DAILY PO 12/04/21 09:00 12/13/21 08:11 Multivitamins/ Calcium (Thera-M Plus) 1 tab DAILY PO 12/04/21 09:00 12/13/21 08:11 Acetaminophen/ Codeine Phosphate (Tylenol #3) 1 tab PRN BID PRN PO PAIN 12/03/21 17:00 Levofloxacin (Levaquin) 250 mg DAILY06 PO 12/06/21 12:15 12/08/21 12:13 DC 12/07/21 05:23 Lactobacillus Rhamnosus (Culturelle) 1 cap BID PO 12/08/21 21:00 12/13/21 20:28 Simvastatin (Zocor) 40 mg HS PO 12/08/21 21:00 12/13/21 20:29 Doxycycline Hyclate (Vibra-Tab) 100 mg BID PO 12/08/21 21:00 12/13/21 12:00 DC 12/13/21 08:11 Olanzapine (ZyPREXA ZYDIS) 2.5 mg PRN Q2HR PRN PO PSYCHOSIS 12/10/21 12:00 Mirtazapine (Remeron) 7.5 mg QHS PO 12/10/21 21:00 12/13/21 20:28 Trazodone HCl (Desyrel) 50 mg PRN QHS PRN PO INSOMNIA 12/10/21 12:00 Sertraline HCl (Zoloft) 25 mg QHS PO 12/12/21 21:00 12/14/21 23:00 12/13/21 20:29 Sertraline HCl (Zoloft) 50 mg QHS PO 12/15/21 21:00 Quetiapine Fumarate (SEROquel) 12.5 mg 1700 PO 12/13/21 17:00 12/13/21 17:38 Current Medications Medications (Trade) Dose Ordered Sig/Elias Route PRN Reason Start Time Stop Time Status Last Admin Dose Admin Quetiapine Fumarate (SEROquel) 12.5 mg 1700 PO 12/13/21 17:00 12/13/21 17:38 I have reviewed the current psychotropics carefully including drug interactions. Risk benefit ratio favors no change other than as noted in my dictated progress note. Diagnosis: Problems: (1) Impulse control disorder, unspecified (2) Anxiety disorder, unspecified (3) Dementia in Alzheimer's disease with depression (4) Dementia in Alzheimer's disease with delusions (5) Dementia of the Alzheimer's type with early onset with behavioral disturbance (6) Major neurocognitive disorder MANDY RODRIGUEZ MD Dec 13, 2021 21:13
[2021-12-14 05:54] VITALS: BP 150/74
[2021-12-14] MEDS: LACTOBACILLUS RHAMNOSUS GG 1 CAPSULE. PO SCH ×2 (07:31→20:35)
[2021-12-14] MEDS: GLUCOSAMINE/CHOND 500/400MG CAPSULE PO SCH (07:31)
[2021-12-14] MEDS: CHOLECALCIFEROL (VITAMIN D3) 1,000 UNIT TABLET PO SCH (07:31)
[2021-12-14] MEDS: LOSARTAN 50 MG TABLET. PO SCH (07:31)
[2021-12-14] MEDS: MULTIVITAMIN with MINERAL TABLET. PO SCH (07:32)
--- NOTE | 2021-12-14 09:05 | NUR ---
Nursing Note Pt highly combative with any interactions especially ADL's. Not eating doesn't understand what food or utensils are, acts as though she doesn't recognize it as food, rubs jelly into her fingers and hands as if it is lotion. Gets extremely irritable when redirected, and mocks staff condescendingly when we attempt to help or guide her. She misperceives staff helping her as a threat and becomes very aggressive with interactions. Pt in bed after breakfast.
[2021-12-14 16:11] VITALS: BP 113/75
[2021-12-14] MEDS: QUEtiapine 25 MG TABLET. PO SCH (16:54)
--- NOTE | 2021-12-14 17:52 | NUR ---
Patient rested in her room for most of the afternoon. She was up in her chair for a portion of the day too. She is very confused and has difficulty with responding to simple questions or direction. Patient needs a quiet and concrete approach to directives for compliance with medications and fluid intake. She fiddles and fidgets with items and has little to know intentional behavior. She does not respond with speech very well but will use facial gestures with eyes, head nods for yes, and shaking her head for no to simple yes and no communications related to her needs and wants. She took her medication at 1700 crushed in chocolate pudding without resistance but needed patient prompting. After swallowing the pudding i gave her as cup of water that to my surprise she very clearly said "thank you".
--- NOTE | 2021-12-14 18:04 | NUR ---
COVID test from 0600 today is negative
[2021-12-14] MEDS: SERTRALINE 25 MG TABLET. PO SCH (20:34)
[2021-12-14] MEDS: MIRTAZAPINE 7.5 MG TABLET. PO SCH (20:34)
[2021-12-14] MEDS: SIMVASTATIN 40 MG TABLET. PO SCH (20:35)
--- NOTE | 2021-12-14 21:17 | PDOC ---
Exam Note: Donavon Note: Please also refer to the separate dictated note~for this date of service dictated separately.~Patient seen individually. Discussed the patient with Nursing staff reviewed the chart.~Reviewed interim history and current functioning. Reviewed vital signs,~Labs/ Radiology~and current medications noted below. Continue current treatment with the changes noted in the dictated addendum note Assessment: Vital Signs/I&O: Vital Signs Date Time Temp Pulse Resp B/P (MAP) Pulse Ox O2 Delivery O2 Flow Rate FiO2 12/14/21 16:11 97.9 76 20 113/75 (88) 96 Room Air I & O 12/13/21 12/13/21 12/14/21 15:00 23:00 07:00 Intake Total 180 ml 0 ml Balance 180 ml 0 ml Labs: Laboratory Tests Test 12/14/21 06:00 SARS-CoV-2 (PCR) Not detected (NOT DETECTD) Current Medications: Meds: Laboratory Tests Test 12/14/21 06:00 Coronavirus (COVID-19)(PCR) Not detected Current Medications Medications (Trade) Dose Ordered Sig/Elias Route PRN Reason Start Time Stop Time Status Last Admin Dose Admin Acetaminophen (Tylenol) 650 mg PRN Q6HRS PRN PO MILD PAIN / TEMP > 100.3'F 12/03/21 15:15 12/13/21 15:35 Multi-Ingredient Ointment (Analgesic [place]) 1 andie PRN QID PRN TP MUSCLE PAIN 12/03/21 15:15 Al Hydroxide/Mg Hydroxide (Mylanta Plus Xs) 15 ml PRN AFTMEALHC PRN PO DYSPEPSIA 12/03/21 15:15 Magnesium Hydroxide (Milk Of Magnesia) 2,400 mg PRN QHS PRN PO 1st choice CONSTIPATION 12/03/21 15:15 Diphenoxylate HCl/ Atropine (Lomotil) 1 tab PRN BID PRN PO DIARRHEA 12/03/21 16:15 Docusate Sodium (Colace) 100 mg PRN DAILY PRN PO 2ND CHOICE CONSTIPATION 12/03/21 16:15 Donepezil HCl (Aricept) 10 mg QHS PO 12/03/21 21:00 12/07/21 11:37 DC 12/06/21 21:06 Losartan Potassium (Cozaar) 50 mg DAILY PO 12/04/21 09:00 12/14/21 07:31 Memantine (Namenda) 5 mg QHS PO 12/03/21 21:00 12/07/21 11:37 DC 12/06/21 21:06 Simvastatin (Zocor) 40 mg DAILY PO 12/04/21 09:00 12/08/21 12:13 DC 12/07/21 08:03 Vitamin D (Vitamin D3) 5,000 unit DAILY PO 12/04/21 09:00 12/14/21 07:31 Glucosamine/ Chondroitin (Glucosamine-Chondroitin 500/400mg) 1 cap DAILY PO 12/04/21 09:00 12/14/21 07:31 Multivitamins/ Calcium (Thera-M Plus) 1 tab DAILY PO 12/04/21 09:00 12/14/21 07:32 Acetaminophen/ Codeine Phosphate (Tylenol #3) 1 tab PRN BID PRN PO PAIN 12/03/21 17:00 Levofloxacin (Levaquin) 250 mg DAILY06 PO 12/06/21 12:15 12/08/21 12:13 DC 12/07/21 05:23 Lactobacillus Rhamnosus (Culturelle) 1 cap BID PO 12/08/21 21:00 12/14/21 20:35 Simvastatin (Zocor) 40 mg HS PO 12/08/21 21:00 12/14/21 20:35 Doxycycline Hyclate (Vibra-Tab) 100 mg BID PO 12/08/21 21:00 12/13/21 12:00 DC 12/13/21 08:11 Olanzapine (ZyPREXA ZYDIS) 2.5 mg PRN Q2HR PRN PO PSYCHOSIS 12/10/21 12:00 12/14/21 12:22 Mirtazapine (Remeron) 7.5 mg QHS PO 12/10/21 21:00 12/14/21 20:34 Trazodone HCl (Desyrel) 50 mg PRN QHS PRN PO INSOMNIA 12/10/21 12:00 Sertraline HCl (Zoloft) 25 mg QHS PO 12/12/21 21:00 12/14/21 23:00 12/14/21 20:34 Sertraline HCl (Zoloft) 50 mg QHS PO 12/15/21 21:00 Quetiapine Fumarate (SEROquel) 12.5 mg 1700 PO 12/13/21 17:00 12/14/21 16:54 I have reviewed the current psychotropics carefully including drug interactions. Risk benefit ratio favors no change other than as noted in my dictated progress note. Diagnosis: Problems: (1) Impulse control disorder, unspecified (2) Anxiety disorder, unspecified (3) Dementia in Alzheimer's disease with depression (4) Dementia in Alzheimer's disease with delusions (5) Dementia of the Alzheimer's type with early onset with behavioral disturbance (6) Major neurocognitive disorder MANDY RODRIGUEZ MD Dec 14, 2021 21:17
--- NOTE | 2021-12-14 23:06 | NUR ---
Patient has been in her room this shift. She has been in bed, sleeping at times, awake at others. Patient was compliant with medications crushed in pudding and she drank 240 ml water after taking medications. Nurse guided spoon into patients mouth, she had some difficulty using a straw but was eventually able to drink from it. No adverse behaviors noted this shift.
[2021-12-15 05:50] VITALS: BP 150/69
--- NOTE | 2021-12-15 07:09 | PDOC ---
Exam Note: Donavon Note: This note is a late entry for 12/13/2021 covers elements not covered in my initial note. Subjective: The patient was seen individually at treatment team meeting in the morning on 12/13/2021 with Rayne Zavala, Karlene Yadav, and Radha Faulkner (social welfare clerk), Maria R, activity therapy, and Denzel NATH, discussed and reviewed the chart. Reviewed interim history and current functioning. The patient slept 6-3/4 hours previous night. Appetite is 40%. She is less drowsy. Previous evening she was resistive with cares, somewhat mean and confused per nursing report, not cooperative at all, little better during the day today. She does get more agitated late in the evening. Review of Systems: Gait unsteady, with walker. No CV, , pulmonary, eye, ENT system symptoms on review. Reliability poor. Mental Status Exam: The patient is oriented to herself. Insight and judgment, recent and remote memory, attention and concentration, fund of knowledge is poor consistent with her diagnoses. Laboratory Data: Reviewed. Impression: Major neurocognitive disorder, Alzheimer, vascular with delusion, depression behavioral disturbance. Anxiety disorder unspecified. Impulse control disorder unspecified. Plan: Given her psychotic symptoms, agitation and anxiety, irritability and increased confusion in the evening, we will go ahead and add Seroquel 12.5 mg at 5 p.m. Rest unchanged per initial note. Assessment: Vital Signs/I&O: Vital Signs Date Time Temp Pulse Resp B/P (MAP) Pulse Ox O2 Delivery O2 Flow Rate FiO2 12/15/21 05:50 97.4 73 16 150/69 (96) 94 12/14/21 16:11 Room Air I & O 12/14/21 12/14/21 12/15/21 15:00 23:00 07:00 Intake Total 600 ml 240 ml Balance 600 ml 240 ml Current Medications: Meds: Current Medications Medications (Trade) Dose Ordered Sig/Elias Route PRN Reason Start Time Stop Time Status Last Admin Dose Admin Acetaminophen (Tylenol) 650 mg PRN Q6HRS PRN PO MILD PAIN / TEMP > 100.3'F 12/03/21 15:15 12/13/21 15:35 Multi-Ingredient Ointment (Analgesic [place]) 1 andie PRN QID PRN TP MUSCLE PAIN 12/03/21 15:15 Al Hydroxide/Mg Hydroxide (Mylanta Plus Xs) 15 ml PRN AFTMEALHC PRN PO DYSPEPSIA 12/03/21 15:15 Magnesium Hydroxide (Milk Of Magnesia) 2,400 mg PRN QHS PRN PO 1st choice CONSTIPATION 12/03/21 15:15 Diphenoxylate HCl/ Atropine (Lomotil) 1 tab PRN BID PRN PO DIARRHEA 12/03/21 16:15 Docusate Sodium (Colace) 100 mg PRN DAILY PRN PO 2ND CHOICE CONSTIPATION 12/03/21 16:15 Donepezil HCl (Aricept) 10 mg QHS PO 12/03/21 21:00 12/07/21 11:37 DC 12/06/21 21:06 Losartan Potassium (Cozaar) 50 mg DAILY PO 12/04/21 09:00 12/14/21 07:31 Memantine (Namenda) 5 mg QHS PO 12/03/21 21:00 12/07/21 11:37 DC 12/06/21 21:06 Simvastatin (Zocor) 40 mg DAILY PO 12/04/21 09:00 12/08/21 12:13 DC 12/07/21 08:03 Vitamin D (Vitamin D3) 5,000 unit DAILY PO 12/04/21 09:00 12/14/21 07:31 Glucosamine/ Chondroitin (Glucosamine-Chondroitin 500/400mg) 1 cap DAILY PO 12/04/21 09:00 12/14/21 07:31 Multivitamins/ Calcium (Thera-M Plus) 1 tab DAILY PO 12/04/21 09:00 12/14/21 07:32 Acetaminophen/ Codeine Phosphate (Tylenol #3) 1 tab PRN BID PRN PO PAIN 12/03/21 17:00 Levofloxacin (Levaquin) 250 mg DAILY06 PO 12/06/21 12:15 12/08/21 12:13 DC 12/07/21 05:23 Lactobacillus Rhamnosus (Culturelle) 1 cap BID PO 12/08/21 21:00 12/14/21 20:35 Simvastatin (Zocor) 40 mg HS PO 12/08/21 21:00 12/14/21 20:35 Doxycycline Hyclate (Vibra-Tab) 100 mg BID PO 12/08/21 21:00 12/13/21 12:00 DC 12/13/21 08:11 Olanzapine (ZyPREXA ZYDIS) 2.5 mg PRN Q2HR PRN PO PSYCHOSIS 12/10/21 12:00 12/14/21 12:22 Mirtazapine (Remeron) 7.5 mg QHS PO 12/10/21 21:00 12/14/21 20:34 Trazodone HCl (Desyrel) 50 mg PRN QHS PRN PO INSOMNIA 12/10/21 12:00 Sertraline HCl (Zoloft) 25 mg QHS PO 12/12/21 21:00 12/14/21 23:00 DC 12/14/21 20:34 Sertraline HCl (Zoloft) 50 mg QHS PO 12/15/21 21:00 Quetiapine Fumarate (SEROquel) 12.5 mg 1700 PO 12/13/21 17:00 12/14/21 16:54 I have reviewed the current psychotropics carefully including drug interactions. Risk benefit ratio favors no change other than as noted in my dictated progress note. Diagnosis: Problems: (1) Impulse control disorder, unspecified (2) Anxiety disorder, unspecified (3) Dementia in Alzheimer's disease with depression (4) Dementia in Alzheimer's disease with delusions (5) Dementia of the Alzheimer's type with early onset with behavioral disturbance (6) Major neurocognitive disorder MANDY RODRIGUEZ MD Dec 15, 2021 07:09
--- NOTE | 2021-12-15 07:35 | PDOC ---
Exam Note: Donavon Note: This note is a late entry for 12/14/2021 covers elements not covered in my initial note. Subjective: The patient was seen on telehealth rounds on 12/14/2021 with Marge NATH, discussed and reviewed the chart. The patient slept 6-3/4 hours previous night. She remains confused, got agitated in the afternoon. Received Zyprexa at 1 p.m., better after that. Review of Systems: Ambulation impaired, with walker. No CV, , pulmonary, eye, ENT system symptoms on review. Reliability poor. Mental Status Exam: The patient is oriented to herself. Insight and judgment, recent and remote memory, attention and concentration, fund of knowledge is poor consistent with her diagnoses. Laboratory Data: Reviewed. Impression: Major neurocognitive disorder, Alzheimer, vascular with delusion, depression behavioral disturbance. Anxiety disorder unspecified. Impulse control disorder unspecified. Plan: No change from initial note. Assessment: Vital Signs/I&O: Vital Signs Date Time Temp Pulse Resp B/P (MAP) Pulse Ox O2 Delivery O2 Flow Rate FiO2 12/15/21 05:50 97.4 73 16 150/69 (96) 94 12/14/21 16:11 Room Air I & O 12/14/21 12/14/21 12/15/21 14:59 22:59 06:59 Intake Total 600 ml 240 ml Balance 600 ml 240 ml Current Medications: Meds: Current Medications Medications (Trade) Dose Ordered Sig/Elias Route PRN Reason Start Time Stop Time Status Last Admin Dose Admin Acetaminophen (Tylenol) 650 mg PRN Q6HRS PRN PO MILD PAIN / TEMP > 100.3'F 12/03/21 15:15 12/13/21 15:35 Multi-Ingredient Ointment (Analgesic [place]) 1 andie PRN QID PRN TP MUSCLE PAIN 12/03/21 15:15 Al Hydroxide/Mg Hydroxide (Mylanta Plus Xs) 15 ml PRN AFTMEALHC PRN PO DYSPEPSIA 12/03/21 15:15 Magnesium Hydroxide (Milk Of Magnesia) 2,400 mg PRN QHS PRN PO 1st choice CONSTIPATION 12/03/21 15:15 Diphenoxylate HCl/ Atropine (Lomotil) 1 tab PRN BID PRN PO DIARRHEA 12/03/21 16:15 Docusate Sodium (Colace) 100 mg PRN DAILY PRN PO 2ND CHOICE CONSTIPATION 12/03/21 16:15 Donepezil HCl (Aricept) 10 mg QHS PO 12/03/21 21:00 12/07/21 11:37 DC 12/06/21 21:06 Losartan Potassium (Cozaar) 50 mg DAILY PO 12/04/21 09:00 12/14/21 07:31 Memantine (Namenda) 5 mg QHS PO 12/03/21 21:00 12/07/21 11:37 DC 12/06/21 21:06 Simvastatin (Zocor) 40 mg DAILY PO 12/04/21 09:00 12/08/21 12:13 DC 12/07/21 08:03 Vitamin D (Vitamin D3) 5,000 unit DAILY PO 12/04/21 09:00 12/14/21 07:31 Glucosamine/ Chondroitin (Glucosamine-Chondroitin 500/400mg) 1 cap DAILY PO 12/04/21 09:00 12/14/21 07:31 Multivitamins/ Calcium (Thera-M Plus) 1 tab DAILY PO 12/04/21 09:00 12/14/21 07:32 Acetaminophen/ Codeine Phosphate (Tylenol #3) 1 tab PRN BID PRN PO PAIN 12/03/21 17:00 Levofloxacin (Levaquin) 250 mg DAILY06 PO 12/06/21 12:15 12/08/21 12:13 DC 12/07/21 05:23 Lactobacillus Rhamnosus (Culturelle) 1 cap BID PO 12/08/21 21:00 12/14/21 20:35 Simvastatin (Zocor) 40 mg HS PO 12/08/21 21:00 12/14/21 20:35 Doxycycline Hyclate (Vibra-Tab) 100 mg BID PO 12/08/21 21:00 12/13/21 12:00 DC 12/13/21 08:11 Olanzapine (ZyPREXA ZYDIS) 2.5 mg PRN Q2HR PRN PO PSYCHOSIS 12/10/21 12:00 12/14/21 12:22 Mirtazapine (Remeron) 7.5 mg QHS PO 12/10/21 21:00 12/14/21 20:34 Trazodone HCl (Desyrel) 50 mg PRN QHS PRN PO INSOMNIA 12/10/21 12:00 Sertraline HCl (Zoloft) 25 mg QHS PO 12/12/21 21:00 12/14/21 23:00 DC 12/14/21 20:34 Sertraline HCl (Zoloft) 50 mg QHS PO 12/15/21 21:00 Quetiapine Fumarate (SEROquel) 12.5 mg 1700 PO 12/13/21 17:00 12/14/21 16:54 I have reviewed the current psychotropics carefully including drug interactions. Risk benefit ratio favors no change other than as noted in my dictated progress note. Diagnosis: Problems: (1) Impulse control disorder, unspecified (2) Anxiety disorder, unspecified (3) Dementia in Alzheimer's disease with depression (4) Dementia in Alzheimer's disease with delusions (5) Dementia of the Alzheimer's type with early onset with behavioral disturbance (6) Major neurocognitive disorder MANDY RODRIGUEZ MD Dec 15, 2021 07:34
[2021-12-15] MEDS: GLUCOSAMINE/CHOND 500/400MG CAPSULE PO SCH (08:17)
[2021-12-15] MEDS: MULTIVITAMIN with MINERAL TABLET. PO SCH (08:18)
[2021-12-15] MEDS: LOSARTAN 50 MG TABLET. PO SCH (08:18)
[2021-12-15] MEDS: LACTOBACILLUS RHAMNOSUS GG 1 CAPSULE. PO SCH ×2 (08:18→20:05)
[2021-12-15] MEDS: CHOLECALCIFEROL (VITAMIN D3) 1,000 UNIT TABLET PO SCH (08:18)
[2021-12-15] MEDS: ACETAMINOPHEN 325 MG TABLET PO PRN (11:01)
--- NOTE | 2021-12-15 11:20 | NUR ---
Nursing note: Pt laying in bed at time of AM med pass and assessment. She is pleasant, med compliant and cooperative. Pt is very soft spoken and difficult to hear her responses to questions. Pt appears to be very drowsy at this time, so was allowed to stay in bed for therapeutic sleep. When getting pt ready for the day a little later, pt was groaning with the slightest movement and did not wish for her bed to be raised further. PRN tylenol given for reports of back pain. Will continue to monitor.
--- NOTE | 2021-12-15 11:30 | NUR ---
Nursing note: Pt very resistive with shower, attempting to grab at shower head and was yelling and swinging at staff as they are attempting to redress her. Pt eventually able to be dressed and taken back to her room to prepare for lunch. Will continue to monitor.
[2021-12-15 16:04] VITALS: BP 138/70
[2021-12-15] MEDS: QUEtiapine 25 MG TABLET. PO SCH (17:02)
[2021-12-15] MEDS: SIMVASTATIN 40 MG TABLET. PO SCH (20:05)
[2021-12-15] MEDS: MIRTAZAPINE 7.5 MG TABLET. PO SCH (20:05)
[2021-12-15] MEDS: SERTRALINE 50 MG TABLET. PO SCH (20:07)
--- NOTE | 2021-12-15 21:34 | PDOC ---
Exam Note: Donavon Note: Please also refer to the separate dictated note~for this date of service dictated separately.~Patient seen individually. Discussed the patient with Nursing staff reviewed the chart.~Reviewed interim history and current functioning. Reviewed vital signs,~Labs/ Radiology~and current medications noted below. Continue current treatment with the changes noted in the dictated addendum note Assessment: Vital Signs/I&O: Vital Signs Date Time Temp Pulse Resp B/P (MAP) Pulse Ox O2 Delivery O2 Flow Rate FiO2 12/15/21 16:04 97.2 74 18 138/70 (92) 95 Room Air I & O 12/14/21 12/14/21 12/15/21 15:00 23:00 07:00 Intake Total 600 ml 240 ml Balance 600 ml 240 ml Current Medications: Meds: Current Medications Medications (Trade) Dose Ordered Sig/Elias Route PRN Reason Start Time Stop Time Status Last Admin Dose Admin Acetaminophen (Tylenol) 650 mg PRN Q6HRS PRN PO MILD PAIN / TEMP > 100.3'F 12/03/21 15:15 12/15/21 11:01 Multi-Ingredient Ointment (Analgesic [place]) 1 andie PRN QID PRN TP MUSCLE PAIN 12/03/21 15:15 Al Hydroxide/Mg Hydroxide (Mylanta Plus Xs) 15 ml PRN AFTMEALHC PRN PO DYSPEPSIA 12/03/21 15:15 Magnesium Hydroxide (Milk Of Magnesia) 2,400 mg PRN QHS PRN PO 1st choice CONSTIPATION 12/03/21 15:15 Diphenoxylate HCl/ Atropine (Lomotil) 1 tab PRN BID PRN PO DIARRHEA 12/03/21 16:15 Docusate Sodium (Colace) 100 mg PRN DAILY PRN PO 2ND CHOICE CONSTIPATION 12/03/21 16:15 Donepezil HCl (Aricept) 10 mg QHS PO 12/03/21 21:00 12/07/21 11:37 DC 12/06/21 21:06 Losartan Potassium (Cozaar) 50 mg DAILY PO 12/04/21 09:00 12/15/21 08:18 Memantine (Namenda) 5 mg QHS PO 12/03/21 21:00 12/07/21 11:37 DC 12/06/21 21:06 Simvastatin (Zocor) 40 mg DAILY PO 12/04/21 09:00 12/08/21 12:13 DC 12/07/21 08:03 Vitamin D (Vitamin D3) 5,000 unit DAILY PO 12/04/21 09:00 12/15/21 08:18 Glucosamine/ Chondroitin (Glucosamine-Chondroitin 500/400mg) 1 cap DAILY PO 12/04/21 09:00 12/15/21 08:17 Multivitamins/ Calcium (Thera-M Plus) 1 tab DAILY PO 12/04/21 09:00 12/15/21 08:18 Acetaminophen/ Codeine Phosphate (Tylenol #3) 1 tab PRN BID PRN PO PAIN 12/03/21 17:00 Levofloxacin (Levaquin) 250 mg DAILY06 PO 12/06/21 12:15 12/08/21 12:13 DC 12/07/21 05:23 Lactobacillus Rhamnosus (Culturelle) 1 cap BID PO 12/08/21 21:00 12/15/21 20:05 Simvastatin (Zocor) 40 mg HS PO 12/08/21 21:00 12/15/21 20:05 Doxycycline Hyclate (Vibra-Tab) 100 mg BID PO 12/08/21 21:00 12/13/21 12:00 DC 12/13/21 08:11 Olanzapine (ZyPREXA ZYDIS) 2.5 mg PRN Q2HR PRN PO PSYCHOSIS 12/10/21 12:00 12/14/21 12:22 Mirtazapine (Remeron) 7.5 mg QHS PO 12/10/21 21:00 12/15/21 20:05 Trazodone HCl (Desyrel) 50 mg PRN QHS PRN PO INSOMNIA 12/10/21 12:00 Sertraline HCl (Zoloft) 25 mg QHS PO 12/12/21 21:00 12/14/21 23:00 DC 12/14/21 20:34 Sertraline HCl (Zoloft) 50 mg QHS PO 12/15/21 21:00 12/15/21 20:07 Quetiapine Fumarate (SEROquel) 12.5 mg 1700 PO 12/13/21 17:00 12/15/21 17:02 Current Medications Medications (Trade) Dose Ordered Sig/Elias Route PRN Reason Start Time Stop Time Status Last Admin Dose Admin Sertraline HCl (Zoloft) 50 mg QHS PO 12/15/21 21:00 12/15/21 20:07 I have reviewed the current psychotropics carefully including drug interactions. Risk benefit ratio favors no change other than as noted in my dictated progress note. Diagnosis: Problems: (1) Impulse control disorder, unspecified (2) Anxiety disorder, unspecified (3) Dementia in Alzheimer's disease with depression (4) Dementia in Alzheimer's disease with delusions (5) Dementia of the Alzheimer's type with early onset with behavioral disturbance (6) Major neurocognitive disorder MANDY RODRIGUEZ MD Dec 15, 2021 21:34
--- NOTE | 2021-12-15 23:09 | NUR ---
Patient has been laying in her bed, on her side or face down. She was awake and denied pain when asked. She spoke to her briefly on the phone, their conversation sounded mostly one sided, she did not participate very much. Patient is very confused and needed much prompting and direction to take her medications crushed in pudding. She drank a cup of water after medications. It was reported that patient has been having trouble using fork and tried to use a comb to eat her mashed potatoes at dinner. Relayed this to Dr Junior and we will change the dietary order to finger foods. Her stated that she "did not have trouble, before this all started".
--- NOTE | 2021-12-16 06:29 | NUR ---
Patient woke up with a dry brief and had minimal urine output in toilet this morning. CBC/CMP ordered for this morning and will bladder scan patient to see if she is retaining urine.
[2021-12-16 06:34] VITALS: BP 137/83
[2021-12-16] MEDS: GLUCOSAMINE/CHOND 500/400MG CAPSULE PO SCH (08:04)
[2021-12-16] MEDS: MULTIVITAMIN with MINERAL TABLET. PO SCH (08:05)
[2021-12-16] MEDS: LOSARTAN 50 MG TABLET. PO SCH (08:05)
[2021-12-16] MEDS: LACTOBACILLUS RHAMNOSUS GG 1 CAPSULE. PO SCH ×2 (08:05→20:19)
[2021-12-16] MEDS: CHOLECALCIFEROL (VITAMIN D3) 1,000 UNIT TABLET PO SCH (08:05)
[2021-12-16 10:13] LABS: BASO % 0 % (0-3); EOS # 0.1 x10^3/uL (0.0-0.7); EOS % 1 % (0-3); HEMATOCRIT 37.3 % (36.0-47.0); HEMOGLOBIN 12.2 g/dL (12.0-15.5); LYMPH # 1.8 x10^3/uL (1.0-4.8); LYMPH % 17 % (24-48); MEAN CORPUSCULAR HEMOGLOBIN 30 pg (25-35); MEAN CORPUSCULAR HGB CONC 33 g/dL (31-37); MEAN CORPUSCULAR VOLUME 92 fL (79-100); MONO # 0.7 x10^3/uL (0.0-1.1); MONO % 7 % (0-9); NEUT # 8.1 x10^3uL (1.8-7.7); NEUT % 75 % (31-73); PLATELET COUNT 304 x10^3/uL (140-400); RED BLOOD COUNT 4.04 x10^6/uL (3.50-5.40); RED CELL DISTRIBUTION WIDTH 12.7 % (11.5-14.5); WHITE BLOOD COUNT 10.8 x10^3/uL (4.0-11.0)
[2021-12-16 10:27] LABS: ALBUMIN 3.3 g/dL (3.4-5.0); CALCIUM 8.7 mg/dL (8.5-10.1); POTASSIUM 3.5 mmol/L (3.5-5.1); TOTAL BILIRUBIN 0.2 mg/dL (0.2-1.0); TOTAL PROTEIN 6.6 g/dL (6.4-8.2)
[2021-12-16] MEDS: ACETAMINOPHEN 325 MG TABLET PO PRN (11:48)
[2021-12-16 15:35] VITALS: BP 134/80
[2021-12-16] MEDS: QUEtiapine 25 MG TABLET. PO SCH (17:18)
--- NOTE | 2021-12-16 17:31 | NUR ---
Nurse Day Shift Note: Pt presents in a disorganized and confused manner. Pt is medication compliant. Pt is noted to spend time resting in her room today. Pt continues to be encouraged to eat. Pt has voided in the toilet today. Pt had a phone call from her today. Pt does not verbalize very much when her speaks to her on the phone. Pts vitals are WNL. Pt slept 8.5 hours last night. Will continue to monitor.
[2021-12-16] MEDS: SERTRALINE 50 MG TABLET. PO SCH (20:19)
[2021-12-16] MEDS: SIMVASTATIN 40 MG TABLET. PO SCH (20:19)
[2021-12-16] MEDS: MIRTAZAPINE 7.5 MG TABLET. PO SCH (20:20)
--- NOTE | 2021-12-16 21:37 | PDOC ---
Exam Note: Donavon Note: Please also refer to the separate dictated note~for this date of service dictated separately.~Patient seen individually. Discussed the patient with Nursing staff reviewed the chart.~Reviewed interim history and current functioning. Reviewed vital signs,~Labs/ Radiology~and current medications noted below. Continue current treatment with the changes noted in the dictated addendum note Assessment: Vital Signs/I&O: Vital Signs Date Time Temp Pulse Resp B/P (MAP) Pulse Ox O2 Delivery O2 Flow Rate FiO2 12/16/21 15:35 97.2 76 20 134/80 (98) 96 Room Air I & O 12/15/21 12/15/21 12/16/21 15:00 23:00 07:00 Intake Total 120 ml 360 ml Balance 120 ml 360 ml Labs: Laboratory Tests Test 12/16/21 10:05 White Blood Count 10.8 x10^3/uL (4.0-11.0) Red Blood Count 4.04 x10^6/uL (3.50-5.40) Hemoglobin 12.2 g/dL (12.0-15.5) Hematocrit 37.3 % (36.0-47.0) Mean Corpuscular Volume 92 fL (79-100) Mean Corpuscular Hemoglobin 30 pg (25-35) Mean Corpuscular Hemoglobin Concent 33 g/dL (31-37) Red Cell Distribution Width 12.7 % (11.5-14.5) Platelet Count 304 x10^3/uL (140-400) Neutrophils (%) (Auto) 75 % (31-73) H Lymphocytes (%) (Auto) 17 % (24-48) L Monocytes (%) (Auto) 7 % (0-9) Eosinophils (%) (Auto) 1 % (0-3) Basophils (%) (Auto) 0 % (0-3) Neutrophils # (Auto) 8.1 x10^3uL (1.8-7.7) H Lymphocytes # (Auto) 1.8 x10^3/uL (1.0-4.8) Monocytes # (Auto) 0.7 x10^3/uL (0.0-1.1) Eosinophils # (Auto) 0.1 x10^3/uL (0.0-0.7) Basophils # (Auto) 0.0 x10^3/uL (0.0-0.2) Sodium Level 144 mmol/L (136-145) Potassium Level 3.5 mmol/L (3.5-5.1) Chloride Level 106 mmol/L (98-107) Carbon Dioxide Level 28 mmol/L (21-32) Anion Gap 10 (6-14) Blood Urea Nitrogen 37 mg/dL (7-20) H Creatinine 1.0 mg/dL (0.6-1.0) Estimated GFR (Cockcroft-Gault) 53.0 BUN/Creatinine Ratio 37 (6-20) H Glucose Level 98 mg/dL (70-99) Calcium Level 8.7 mg/dL (8.5-10.1) Total Bilirubin 0.2 mg/dL (0.2-1.0) Aspartate Amino Transferase (AST) 25 U/L (15-37) Alanine Aminotransferase (ALT) 19 U/L (14-59) Alkaline Phosphatase 119 U/L (46-116) H Total Protein 6.6 g/dL (6.4-8.2) Albumin 3.3 g/dL (3.4-5.0) L Albumin/Globulin Ratio 1.0 (1.0-1.7) Current Medications: Meds: Laboratory Tests Test 12/16/21 10:05 White Blood Count 10.8 x10^3/uL Red Blood Count 4.04 x10^6/uL Hemoglobin 12.2 g/dL Hematocrit 37.3 % Mean Corpuscular Volume 92 fL Mean Corpuscular Hemoglobin 30 pg Mean Corpuscular Hemoglobin Concent 33 g/dL Red Cell Distribution Width 12.7 % Platelet Count 304 x10^3/uL Neutrophils (%) (Auto) 75 % Lymphocytes (%) (Auto) 17 % Monocytes (%) (Auto) 7 % Eosinophils (%) (Auto) 1 % Basophils (%) (Auto) 0 % Neutrophils # (Auto) 8.1 x10^3uL Lymphocytes # (Auto) 1.8 x10^3/uL Monocytes # (Auto) 0.7 x10^3/uL Eosinophils # (Auto) 0.1 x10^3/uL Basophils # (Auto) 0.0 x10^3/uL Sodium Level 144 mmol/L Potassium Level 3.5 mmol/L Chloride Level 106 mmol/L Carbon Dioxide Level 28 mmol/L Anion Gap 10 Blood Urea Nitrogen 37 mg/dL Creatinine 1.0 mg/dL Estimated GFR (Cockcroft-Gault) 53.0 BUN/Creatinine Ratio 37 Glucose Level 98 mg/dL Calcium Level 8.7 mg/dL Total Bilirubin 0.2 mg/dL Aspartate Amino Transf (AST/SGOT) 25 U/L Alanine Aminotransferase (ALT/SGPT) 19 U/L Alkaline Phosphatase 119 U/L Total Protein 6.6 g/dL Albumin 3.3 g/dL Albumin/Globulin Ratio 1.0 Current Medications Medications (Trade) Dose Ordered Sig/Elias Route PRN Reason Start Time Stop Time Status Last Admin Dose Admin Acetaminophen (Tylenol) 650 mg PRN Q6HRS PRN PO MILD PAIN / TEMP > 100.3'F 12/03/21 15:15 12/16/21 11:48 Multi-Ingredient Ointment (Analgesic [place]) 1 andie PRN QID PRN TP MUSCLE PAIN 12/03/21 15:15 Al Hydroxide/Mg Hydroxide (Mylanta Plus Xs) 15 ml PRN AFTMEALHC PRN PO DYSPEPSIA 12/03/21 15:15 Magnesium Hydroxide (Milk Of Magnesia) 2,400 mg PRN QHS PRN PO 1st choice CONSTIPATION 12/03/21 15:15 Diphenoxylate HCl/ Atropine (Lomotil) 1 tab PRN BID PRN PO DIARRHEA 12/03/21 16:15 Docusate Sodium (Colace) 100 mg PRN DAILY PRN PO 2ND CHOICE CONSTIPATION 12/03/21 16:15 Donepezil HCl (Aricept) 10 mg QHS PO 12/03/21 21:00 12/07/21 11:37 DC 12/06/21 21:06 Losartan Potassium (Cozaar) 50 mg DAILY PO 12/04/21 09:00 12/16/21 08:05 Memantine (Namenda) 5 mg QHS PO 12/03/21 21:00 12/07/21 11:37 DC 12/06/21 21:06 Simvastatin (Zocor) 40 mg DAILY PO 12/04/21 09:00 12/08/21 12:13 DC 12/07/21 08:03 Vitamin D (Vitamin D3) 5,000 unit DAILY PO 12/04/21 09:00 12/16/21 08:05 Glucosamine/ Chondroitin (Glucosamine-Chondroitin 500/400mg) 1 cap DAILY PO 12/04/21 09:00 12/16/21 08:04 Multivitamins/ Calcium (Thera-M Plus) 1 tab DAILY PO 12/04/21 09:00 12/16/21 08:05 Acetaminophen/ Codeine Phosphate (Tylenol #3) 1 tab PRN BID PRN PO PAIN 12/03/21 17:00 Levofloxacin (Levaquin) 250 mg DAILY06 PO 12/06/21 12:15 12/08/21 12:13 DC 12/07/21 05:23 Lactobacillus Rhamnosus (Culturelle) 1 cap BID PO 12/08/21 21:00 12/16/21 20:19 Simvastatin (Zocor) 40 mg HS PO 12/08/21 21:00 12/16/21 20:19 Doxycycline Hyclate (Vibra-Tab) 100 mg BID PO 12/08/21 21:00 12/13/21 12:00 DC 12/13/21 08:11 Olanzapine (ZyPREXA ZYDIS) 2.5 mg PRN Q2HR PRN PO PSYCHOSIS 12/10/21 12:00 12/14/21 12:22 Mirtazapine (Remeron) 7.5 mg QHS PO 12/10/21 21:00 12/16/21 20:20 Trazodone HCl (Desyrel) 50 mg PRN QHS PRN PO INSOMNIA 12/10/21 12:00 Sertraline HCl (Zoloft) 25 mg QHS PO 12/12/21 21:00 12/14/21 23:00 DC 12/14/21 20:34 Sertraline HCl (Zoloft) 50 mg QHS PO 12/15/21 21:00 12/16/21 20:19 Quetiapine Fumarate (SEROquel) 12.5 mg 1700 PO 12/13/21 17:00 12/16/21 17:18 I have reviewed the current psychotropics carefully including drug interactions. Risk benefit ratio favors no change other than as noted in my dictated progress note. Diagnosis: Problems: (1) Impulse control disorder, unspecified (2) Anxiety disorder, unspecified (3) Dementia in Alzheimer's disease with depression (4) Dementia in Alzheimer's disease with delusions (5) Dementia of the Alzheimer's type with early onset with behavioral disturbance (6) Major neurocognitive disorder MANDY RODRIGUEZ MD Dec 16, 2021 21:37
--- NOTE | 2021-12-16 23:15 | NUR ---
Patient is awake in bed on assumption of care. She is very disorganized, confused. Answers to her name but cannot state her last name or . She is compliant with physical assessments but is unable to answer most other assessment questions. Compliant with medications crushed in pudding. Patient appears to be sleeping comfortably at present time. Will continue to monitor.
[2021-12-17 06:10] VITALS: BP 153/89
--- NOTE | 2021-12-17 07:18 | PDOC ---
Exam Note: Donavon Note: This note is a late entry for 12/15/2021 covers elements not covered in my initial note. Subjective: The patient was seen on telehealth rounds on 12/15/2021 with Marge NATH, discussed and reviewed the chart. The patient slept 6 hours previous night. She is resistive to showers and toilet and she remains conf used. calls on a regular basis. She is irritable at times. The patient is on finger foods and does better with this. Review of Systems: Ambulation impaired, with walker. No CV, , pulmonary, eye, ENT system symptoms on review. Reliability poor. Mental Status Exam: The patient is oriented to herself. Insight and judgment, recent and remote memory, attention and concentration, fund of knowledge is poor consistent with her diagnoses. Laboratory Data: Reviewed. Impression: Major neurocognitive disorder, Alzheimer, vascular with delusion, depression behavioral disturbance. Anxiety disorder unspecified. Impulse co ntrol disorder unspecified. Plan: No change from initial note. Assessment: Vital Signs/I&O: Vital Signs Date Time Temp Pulse Resp B/P (MAP) Pulse Ox O2 Delivery O2 Flow Rate FiO2 12/17/21 06:10 97.9 75 18 153/89 (110) 97 12/16/21 15:35 Room Air I & O 12/16/21 12/16/21 12/17/21 14:59 22:59 06:59 Intake Total 1200 ml 340 ml Balance 1200 ml 340 ml Labs: Laboratory Tests Test 12/16/21 10:05 White Blood Count 10.8 x10^3/uL (4.0-11.0) Red Blood Count 4.04 x10^6/uL (3.50-5.40) Hemoglobin 12.2 g/dL (12.0-15.5) Hematocrit 37.3 % (36.0-47.0) Mean Corpuscular Volume 92 fL (79-100) Mean Corpuscular Hemoglobin 30 pg (25-35) Mean Corpuscular Hemoglobin Concent 33 g/dL (31-37) Red Cell Distribution Width 12.7 % (11.5-14.5) Platelet Count 304 x10^3/uL (140-400) Neutrophils (%) (Auto) 75 % (31-73) H Lymphocytes (%) (Auto) 17 % (24-48) L Monocytes (%) (Auto) 7 % (0-9) Eosinophils (%) (Auto) 1 % (0-3) Basophils (%) (Auto) 0 % (0-3) Neutrophils # (Auto) 8.1 x10^3uL (1.8-7.7) H Lymphocytes # (Auto) 1.8 x10^3/uL (1.0-4.8) Monocytes # (Auto) 0.7 x10^3/uL (0.0-1.1) Eosinophils # (Auto) 0.1 x10^3/uL (0.0-0.7) Basophils # (Auto) 0.0 x10^3/uL (0.0-0.2) Sodium Level 144 mmol/L (136-145) Potassium Level 3.5 mmol/L (3.5-5.1) Chloride Level 106 mmol/L (98-107) Carbon Dioxide Level 28 mmol/L (21-32) Anion Gap 10 (6-14) Blood Urea Nitrogen 37 mg/dL (7-20) H Creatinine 1.0 mg/dL (0.6-1.0) Estimated GFR (Cockcroft-Gault) 53.0 BUN/Creatinine Ratio 37 (6-20) H Glucose Level 98 mg/dL (70-99) Calcium Level 8.7 mg/dL (8.5-10.1) Total Bilirubin 0.2 mg/dL (0.2-1.0) Aspartate Amino Transferase (AST) 25 U/L (15-37) Alanine Aminotransferase (ALT) 19 U/L (14-59) Alkaline Phosphatase 119 U/L (46-116) H Total Protein 6.6 g/dL (6.4-8.2) Albumin 3.3 g/dL (3.4-5.0) L Albumin/Globulin Ratio 1.0 (1.0-1.7) Current Medications: Meds: Laboratory Tests Test 12/16/21 10:05 White Blood Count 10.8 x10^3/uL Red Blood Count 4.04 x10^6/uL Hemoglobin 12.2 g/dL Hematocrit 37.3 % Mean Corpuscular Volume 92 fL Mean Corpuscular Hemoglobin 30 pg Mean Corpuscular Hemoglobin Concent 33 g/dL Red Cell Distribution Width 12.7 % Platelet Count 304 x10^3/uL Neutrophils (%) (Auto) 75 % Lymphocytes (%) (Auto) 17 % Monocytes (%) (Auto) 7 % Eosinophils (%) (Auto) 1 % Basophils (%) (Auto) 0 % Neutrophils # (Auto) 8.1 x10^3uL Lymphocytes # (Auto) 1.8 x10^3/uL Monocytes # (Auto) 0.7 x10^3/uL Eosinophils # (Auto) 0.1 x10^3/uL Basophils # (Auto) 0.0 x10^3/uL Sodium Level 144 mmol/L Potassium Level 3.5 mmol/L Chloride Level 106 mmol/L Carbon Dioxide Level 28 mmol/L Anion Gap 10 Blood Urea Nitrogen 37 mg/dL Creatinine 1.0 mg/dL Estimated GFR (Cockcroft-Gault) 53.0 BUN/Creatinine Ratio 37 Glucose Level 98 mg/dL Calcium Level 8.7 mg/dL Total Bilirubin 0.2 mg/dL Aspartate Amino Transf (AST/SGOT) 25 U/L Alanine Aminotransferase (ALT/SGPT) 19 U/L Alkaline Phosphatase 119 U/L Total Protein 6.6 g/dL Albumin 3.3 g/dL Albumin/Globulin Ratio 1.0 Current Medications Medications (Trade) Dose Ordered Sig/Elias Route PRN Reason Start Time Stop Time Status Last Admin Dose Admin Acetaminophen (Tylenol) 650 mg PRN Q6HRS PRN PO MILD PAIN / TEMP > 100.3'F 12/03/21 15:15 12/16/21 11:48 Multi-Ingredient Ointment (Analgesic [place]) 1 andie PRN QID PRN TP MUSCLE PAIN 12/03/21 15:15 Al Hydroxide/Mg Hydroxide (Mylanta Plus Xs) 15 ml PRN AFTMEALHC PRN PO DYSPEPSIA 12/03/21 15:15 Magnesium Hydroxide (Milk Of Magnesia) 2,400 mg PRN QHS PRN PO 1st choice CONSTIPATION 12/03/21 15:15 Diphenoxylate HCl/ Atropine (Lomotil) 1 tab PRN BID PRN PO DIARRHEA 12/03/21 16:15 Docusate Sodium (Colace) 100 mg PRN DAILY PRN PO 2ND CHOICE CONSTIPATION 12/03/21 16:15 Donepezil HCl (Aricept) 10 mg QHS PO 12/03/21 21:00 12/07/21 11:37 DC 12/06/21 21:06 Losartan Potassium (Cozaar) 50 mg DAILY PO 12/04/21 09:00 12/16/21 08:05 Memantine (Namenda) 5 mg QHS PO 12/03/21 21:00 12/07/21 11:37 DC 12/06/21 21:06 Simvastatin (Zocor) 40 mg DAILY PO 12/04/21 09:00 12/08/21 12:13 DC 12/07/21 08:03 Vitamin D (Vitamin D3) 5,000 unit DAILY PO 12/04/21 09:00 12/16/21 08:05 Glucosamine/ Chondroitin (Glucosamine-Chondroitin 500/400mg) 1 cap DAILY PO 12/04/21 09:00 12/16/21 08:04 Multivitamins/ Calcium (Thera-M Plus) 1 tab DAILY PO 12/04/21 09:00 12/16/21 08:05 Acetaminophen/ Codeine Phosphate (Tylenol #3) 1 tab PRN BID PRN PO PAIN 12/03/21 17:00 Levofloxacin (Levaquin) 250 mg DAILY06 PO 12/06/21 12:15 12/08/21 12:13 DC 12/07/21 05:23 Lactobacillus Rhamnosus (Culturelle) 1 cap BID PO 12/08/21 21:00 12/16/21 20:19 Simvastatin (Zocor) 40 mg HS PO 12/08/21 21:00 12/16/21 20:19 Doxycycline Hyclate (Vibra-Tab) 100 mg BID PO 12/08/21 21:00 12/13/21 12:00 DC 12/13/21 08:11 Olanzapine (ZyPREXA ZYDIS) 2.5 mg PRN Q2HR PRN PO PSYCHOSIS 12/10/21 12:00 12/14/21 12:22 Mirtazapine (Remeron) 7.5 mg QHS PO 12/10/21 21:00 12/16/21 20:20 Trazodone HCl (Desyrel) 50 mg PRN QHS PRN PO INSOMNIA 12/10/21 12:00 Sertraline HCl (Zoloft) 25 mg QHS PO 12/12/21 21:00 12/14/21 23:00 DC 1/14/22 20:34 Sertraline HCl (Zoloft) 50 mg QHS PO 12/15/21 21:00 12/16/21 20:19 Quetiapine Fumarate (SEROquel) 12.5 mg 1700 PO 12/13/21 17:00 12/16/21 17:18 I have reviewed the current psychotropics carefully including drug interactions. Risk benefit ratio favors no change other than as noted in my dictated progress note. Diagnosis: Problems: (1) Impulse control disorder, unspecified (2) Anxiety disorder, unspecified (3) Dementia in Alzheimer's disease with depression (4) Dementia in Alzheimer's disease with delusions (5) Dementia of the Alzheimer's type with early onset with behavioral disturbance (6) Major neurocognitive disorder MANDY RODRIGUEZ MD Dec 17, 2021 07:18
--- NOTE | 2021-12-17 07:40 | PDOC ---
Exam Note: Donavon Note: This note is a late entry for 12/16/2021 covers elements not covered in my initial note. Subjective: The patient was seen on telehealth rounds on 12/16/2021 with Audrey NATH, discussed and reviewed the chart. The patient slept 8-1/2 hours previous night. She remains on finger foods, remains confused, less irritable. has been calling for regular updates on her insistent that she would be discharged on 12/20 and that is the plan for now despite her quarantine. Review of Systems: Ambulation impaired. No CV, , pulmonary, eye, ENT system symptoms on review. Reliability poor. Mental Status Exam: The patient is oriented to herself. Insight and judgment, recent and remote memory, attention and concentration, fund of knowledge is poor consistent with her diagnoses. Laboratory Data: Reviewed. Impression: Major neurocognitive disorder, Alzheimer, vascular with delusion, depression behavioral disturbance. Anxiety disorder unspecified. Impulse control disorder unspecified. Plan: No change from initial note. Assessment: Vital Signs/I&O: Vital Signs Date Time Temp Pulse Resp B/P (MAP) Pulse Ox O2 Delivery O2 Flow Rate FiO2 12/17/21 06:10 97.9 75 18 153/89 (110) 97 12/16/21 15:35 Room Air I & O 12/16/21 12/16/21 12/17/21 14:59 22:59 06:59 Intake Total 1200 ml 340 ml Balance 1200 ml 340 ml Labs: Laboratory Tests Test 12/16/21 10:05 White Blood Count 10.8 x10^3/uL (4.0-11.0) Red Blood Count 4.04 x10^6/uL (3.50-5.40) Hemoglobin 12.2 g/dL (12.0-15.5) Hematocrit 37.3 % (36.0-47.0) Mean Corpuscular Volume 92 fL (79-100) Mean Corpuscular Hemoglobin 30 pg (25-35) Mean Corpuscular Hemoglobin Concent 33 g/dL (31-37) Red Cell Distribution Width 12.7 % (11.5-14.5) Platelet Count 304 x10^3/uL (140-400) Neutrophils (%) (Auto) 75 % (31-73) H Lymphocytes (%) (Auto) 17 % (24-48) L Monocytes (%) (Auto) 7 % (0-9) Eosinophils (%) (Auto) 1 % (0-3) Basophils (%) (Auto) 0 % (0-3) Neutrophils # (Auto) 8.1 x10^3uL (1.8-7.7) H Lymphocytes # (Auto) 1.8 x10^3/uL (1.0-4.8) Monocytes # (Auto) 0.7 x10^3/uL (0.0-1.1) Eosinophils # (Auto) 0.1 x10^3/uL (0.0-0.7) Basophils # (Auto) 0.0 x10^3/uL (0.0-0.2) Sodium Level 144 mmol/L (136-145) Potassium Level 3.5 mmol/L (3.5-5.1) Chloride Level 106 mmol/L (98-107) Carbon Dioxide Level 28 mmol/L (21-32) Anion Gap 10 (6-14) Blood Urea Nitrogen 37 mg/dL (7-20) H Creatinine 1.0 mg/dL (0.6-1.0) Estimated GFR (Cockcroft-Gault) 53.0 BUN/Creatinine Ratio 37 (6-20) H Glucose Level 98 mg/dL (70-99) Calcium Level 8.7 mg/dL (8.5-10.1) Total Bilirubin 0.2 mg/dL (0.2-1.0) Aspartate Amino Transferase (AST) 25 U/L (15-37) Alanine Aminotransferase (ALT) 19 U/L (14-59) Alkaline Phosphatase 119 U/L (46-116) H Total Protein 6.6 g/dL (6.4-8.2) Albumin 3.3 g/dL (3.4-5.0) L Albumin/Globulin Ratio 1.0 (1.0-1.7) Current Medications: Meds: Laboratory Tests Test 12/16/21 10:05 White Blood Count 10.8 x10^3/uL Red Blood Count 4.04 x10^6/uL Hemoglobin 12.2 g/dL Hematocrit 37.3 % Mean Corpuscular Volume 92 fL Mean Corpuscular Hemoglobin 30 pg Mean Corpuscular Hemoglobin Concent 33 g/dL Red Cell Distribution Width 12.7 % Platelet Count 304 x10^3/uL Neutrophils (%) (Auto) 75 % Lymphocytes (%) (Auto) 17 % Monocytes (%) (Auto) 7 % Eosinophils (%) (Auto) 1 % Basophils (%) (Auto) 0 % Neutrophils # (Auto) 8.1 x10^3uL Lymphocytes # (Auto) 1.8 x10^3/uL Monocytes # (Auto) 0.7 x10^3/uL Eosinophils # (Auto) 0.1 x10^3/uL Basophils # (Auto) 0.0 x10^3/uL Sodium Level 144 mmol/L Potassium Level 3.5 mmol/L Chloride Level 106 mmol/L Carbon Dioxide Level 28 mmol/L Anion Gap 10 Blood Urea Nitrogen 37 mg/dL Creatinine 1.0 mg/dL Estimated GFR (Cockcroft-Gault) 53.0 BUN/Creatinine Ratio 37 Glucose Level 98 mg/dL Calcium Level 8.7 mg/dL Total Bilirubin 0.2 mg/dL Aspartate Amino Transf (AST/SGOT) 25 U/L Alanine Aminotransferase (ALT/SGPT) 19 U/L Alkaline Phosphatase 119 U/L Total Protein 6.6 g/dL Albumin 3.3 g/dL Albumin/Globulin Ratio 1.0 Current Medications Medications (Trade) Dose Ordered Sig/Elias Route PRN Reason Start Time Stop Time Status Last Admin Dose Admin Acetaminophen (Tylenol) 650 mg PRN Q6HRS PRN PO MILD PAIN / TEMP > 100.3'F 12/03/21 15:15 12/16/21 11:48 Multi-Ingredient Ointment (Analgesic [place]) 1 andie PRN QID PRN TP MUSCLE PAIN 12/03/21 15:15 Al Hydroxide/Mg Hydroxide (Mylanta Plus Xs) 15 ml PRN AFTMEALHC PRN PO DYSPEPSIA 12/03/21 15:15 Magnesium Hydroxide (Milk Of Magnesia) 2,400 mg PRN QHS PRN PO 1st choice CONSTIPATION 12/03/21 15:15 Diphenoxylate HCl/ Atropine (Lomotil) 1 tab PRN BID PRN PO DIARRHEA 12/03/21 16:15 Docusate Sodium (Colace) 100 mg PRN DAILY PRN PO 2ND CHOICE CONSTIPATION 12/03/21 16:15 Donepezil HCl (Aricept) 10 mg QHS PO 12/03/21 21:00 12/07/21 11:37 DC 12/06/21 21:06 Losartan Potassium (Cozaar) 50 mg DAILY PO 12/04/21 09:00 12/16/21 08:05 Memantine (Namenda) 5 mg QHS PO 12/03/21 21:00 12/07/21 11:37 DC 12/06/21 21:06 Simvastatin (Zocor) 40 mg DAILY PO 12/04/21 09:00 12/08/21 12:13 DC 12/07/21 08:03 Vitamin D (Vitamin D3) 5,000 unit DAILY PO 12/04/21 09:00 12/16/21 08:05 Glucosamine/ Chondroitin (Glucosamine-Chondroitin 500/400mg) 1 cap DAILY PO 12/04/21 09:00 12/16/21 08:04 Multivitamins/ Calcium (Thera-M Plus) 1 tab DAILY PO 12/04/21 09:00 12/16/21 08:05 Acetaminophen/ Codeine Phosphate (Tylenol #3) 1 tab PRN BID PRN PO PAIN 12/03/21 17:00 Levofloxacin (Levaquin) 250 mg DAILY06 PO 12/06/21 12:15 12/08/21 12:13 DC 12/07/21 05:23 Lactobacillus Rhamnosus (Culturelle) 1 cap BID PO 12/08/21 21:00 12/16/21 20:19 Simvastatin (Zocor) 40 mg HS PO 12/08/21 21:00 12/16/21 20:19 Doxycycline Hyclate (Vibra-Tab) 100 mg BID PO 12/08/21 21:00 12/13/21 12:00 DC 12/13/21 08:11 Olanzapine (ZyPREXA ZYDIS) 2.5 mg PRN Q2HR PRN PO PSYCHOSIS 12/10/21 12:00 12/14/21 12:22 Mirtazapine (Remeron) 7.5 mg QHS PO 12/10/21 21:00 12/16/21 20:20 Trazodone HCl (Desyrel) 50 mg PRN QHS PRN PO INSOMNIA 12/10/21 12:00 Sertraline HCl (Zoloft) 25 mg QHS PO 12/12/21 21:00 12/14/21 23:00 DC 12/14/21 20:34 Sertraline HCl (Zoloft) 50 mg QHS PO 12/15/21 21:00 12/16/21 20:19 Quetiapine Fumarate (SEROquel) 12.5 mg 1700 PO 12/13/21 17:00 12/16/21 17:18 I have reviewed the current psychotropics carefully including drug interactions. Risk benefit ratio favors no change other than as noted in my dictated progress note. Diagnosis: Problems: (1) Impulse control disorder, unspecified (2) Anxiety disorder, unspecified (3) Dementia in Alzheimer's disease with depression (4) Dementia in Alzheimer's disease with delusions (5) Dementia of the Alzheimer's type with early onset with behavioral disturbance (6) Major neurocognitive disorder MNADY RODRIGUEZ MD Dec 17, 2021 07:40
[2021-12-17] MEDS: CHOLECALCIFEROL (VITAMIN D3) 1,000 UNIT TABLET PO SCH (08:36)
[2021-12-17] MEDS: GLUCOSAMINE/CHOND 500/400MG CAPSULE PO SCH (08:36)
[2021-12-17] MEDS: LACTOBACILLUS RHAMNOSUS GG 1 CAPSULE. PO SCH ×2 (08:36→20:36)
[2021-12-17] MEDS: MULTIVITAMIN with MINERAL TABLET. PO SCH (08:37)
[2021-12-17] MEDS: LOSARTAN 50 MG TABLET. PO SCH (08:37)
--- NOTE | 2021-12-17 15:31 | NUR ---
Nursing note: Patient in room for assessment and medications. She is compliant with medications crushed in pudding. She is A/o to first name only, unable to voice last name or date of . She is resistive to cares and hits staff. She was incontinent of stool this afternoon. Patient denies pain/discomfort at this time. She walks unsteady independently, staff encourages her to use walker without success. She is currently laying awake in bed talking to herself. Will continue to monitor. Addendum: 12/17/21 at 1836 by CINTIA INFANTE RN RN This nurse bladder scanned patient for a total of 219ml. Will continue to monitor.
[2021-12-17 15:49] VITALS: BP 105/68
[2021-12-17] MEDS: QUEtiapine 25 MG TABLET. PO SCH (17:24)
[2021-12-17] MEDS: MIRTAZAPINE 7.5 MG TABLET. PO SCH (20:36)
[2021-12-17] MEDS: SIMVASTATIN 40 MG TABLET. PO SCH (20:37)
[2021-12-17] MEDS: SERTRALINE 50 MG TABLET. PO SCH (20:37)
[2021-12-17] MEDS: traZODone 50 MG TABLET. PO PRN (20:37)
--- NOTE | 2021-12-17 20:42 | NUR ---
Nursing Note Pt in shower shortly after shift change. Highly combative, confused, disoriented, angry trying to hit kick and head butt staff. Mocks nurses speech pattern in word salad. Has no understanding of clothing or shoes can't understand how to put her foot into the shoe or pull her arm through the sleeve. Gets angry with any assistance with these things. Hits grabs and punches out at staff. Speaks entirely in a word salad, is difficult to assess, gets agitated with stethoscope etc. Won't take a deep breath and cannot answer questions at all. When asked questions she gives the big eye roll as if I'm asking something huge of her.
--- NOTE | 2021-12-17 21:41 | PDOC ---
Exam Note: Donavon Note: Please also refer to the separate dictated note~for this date of service dictated separately.~Patient seen individually. Discussed the patient with Nursing staff reviewed the chart.~Reviewed interim history and current functioning. Reviewed vital signs,~Labs/ Radiology~and current medications noted below. Continue current treatment with the changes noted in the dictated addendum note Assessment: Vital Signs/I&O: Vital Signs Date Time Temp Pulse Resp B/P (MAP) Pulse Ox O2 Delivery O2 Flow Rate FiO2 12/17/21 15:49 98.9 81 18 105/68 (80) 96 Room Air I & O 12/16/21 12/16/21 12/17/21 15:00 23:00 07:00 Intake Total 1200 ml 340 ml Balance 1200 ml 340 ml Current Medications: Meds: Current Medications Medications (Trade) Dose Ordered Sig/Elias Route PRN Reason Start Time Stop Time Status Last Admin Dose Admin Acetaminophen (Tylenol) 650 mg PRN Q6HRS PRN PO MILD PAIN / TEMP > 100.3'F 12/03/21 15:15 12/16/21 11:48 Multi-Ingredient Ointment (Analgesic [place]) 1 andie PRN QID PRN TP MUSCLE PAIN 12/03/21 15:15 Al Hydroxide/Mg Hydroxide (Mylanta Plus Xs) 15 ml PRN AFTMEALHC PRN PO DYSPEPSIA 12/03/21 15:15 Magnesium Hydroxide (Milk Of Magnesia) 2,400 mg PRN QHS PRN PO 1st choice CONSTIPATION 12/03/21 15:15 Diphenoxylate HCl/ Atropine (Lomotil) 1 tab PRN BID PRN PO DIARRHEA 12/03/21 16:15 Docusate Sodium (Colace) 100 mg PRN DAILY PRN PO 2ND CHOICE CONSTIPATION 12/03/21 16:15 Donepezil HCl (Aricept) 10 mg QHS PO 12/03/21 21:00 12/07/21 11:37 DC 12/06/21 21:06 Losartan Potassium (Cozaar) 50 mg DAILY PO 12/04/21 09:00 12/17/21 08:37 Memantine (Namenda) 5 mg QHS PO 12/03/21 21:00 12/07/21 11:37 DC 12/06/21 21:06 Simvastatin (Zocor) 40 mg DAILY PO 12/04/21 09:00 12/08/21 12:13 DC 12/07/21 08:03 Vitamin D (Vitamin D3) 5,000 unit DAILY PO 12/04/21 09:00 12/17/21 08:36 Glucosamine/ Chondroitin (Glucosamine-Chondroitin 500/400mg) 1 cap DAILY PO 12/04/21 09:00 12/17/21 08:36 Multivitamins/ Calcium (Thera-M Plus) 1 tab DAILY PO 12/04/21 09:00 12/17/21 08:37 Acetaminophen/ Codeine Phosphate (Tylenol #3) 1 tab PRN BID PRN PO PAIN 12/03/21 17:00 Levofloxacin (Levaquin) 250 mg DAILY06 PO 12/06/21 12:15 12/08/21 12:13 DC 12/07/21 05:23 Lactobacillus Rhamnosus (Culturelle) 1 cap BID PO 12/08/21 21:00 12/17/21 20:36 Simvastatin (Zocor) 40 mg HS PO 12/08/21 21:00 12/17/21 20:37 Doxycycline Hyclate (Vibra-Tab) 100 mg BID PO 12/08/21 21:00 12/13/21 12:00 DC 12/13/21 08:11 Olanzapine (ZyPREXA ZYDIS) 2.5 mg PRN Q2HR PRN PO PSYCHOSIS 12/10/21 12:00 12/17/21 20:37 Mirtazapine (Remeron) 7.5 mg QHS PO 12/10/21 21:00 12/17/21 20:36 Trazodone HCl (Desyrel) 50 mg PRN QHS PRN PO INSOMNIA 12/10/21 12:00 12/17/21 20:37 Sertraline HCl (Zoloft) 25 mg QHS PO 12/12/21 21:00 12/14/21 23:00 DC 12/14/21 20:34 Sertraline HCl (Zoloft) 50 mg QHS PO 12/15/21 21:00 12/17/21 17:38 DC 12/16/21 20:19 Quetiapine Fumarate (SEROquel) 12.5 mg 1700 PO 12/13/21 17:00 12/17/21 17:24 Sertraline HCl (Zoloft) 75 mg QHS PO 12/17/21 21:00 12/17/21 20:37 Current Medications Medications (Trade) Dose Ordered Sig/Elias Route PRN Reason Start Time Stop Time Status Last Admin Dose Admin Sertraline HCl (Zoloft) 75 mg QHS PO 12/17/21 21:00 12/17/21 20:37 I have reviewed the current psychotropics carefully including drug interactions. Risk benefit ratio favors no change other than as noted in my dictated progress note. Diagnosis: Problems: (1) Impulse control disorder, unspecified (2) Anxiety disorder, unspecified (3) Dementia in Alzheimer's disease with depression (4) Dementia in Alzheimer's disease with delusions (5) Dementia of the Alzheimer's type with early onset with behavioral disturbance (6) Major neurocognitive disorder MANDY RODRIGUEZ MD Dec 17, 2021 21:41
[2021-12-18 06:18] VITALS: BP 142/82
--- NOTE | 2021-12-18 08:14 | PDOC ---
Exam Note: Donavon Note: This note is a late entry for 12/17/2021 covers elements not covered in my initial note. Subjective: The patient was seen on telehealth rounds on 12/17/2021 with Ciara NATH, discussed and reviewed the chart. The patient slept 8 hours previous night. Her urine output has been monitored. She was incontinent of bowel and may have urinated during that time. Review of Systems: No CV, , pulmonary, eye, ENT system symptoms on review. Reliability poor. Mental Status Exam: The patient is oriented to herself. Insight and judgment, recent and remote memory, attention and concentration, fund of knowledge is poor consistent with her diagnoses. Laboratory Data: Reviewed. Impression: Major neurocognitive disorder, Alzheimer, vascular with delusion, depression behavioral disturbance. Anxiety disorder unspecified. Impulse control disorder unspecified. Plan: Increase Zoloft from 50 mg a day to 75 mg a day. Rest unchanged from initial note. Assessment: Vital Signs/I&O: Vital Signs Date Time Temp Pulse Resp B/P (MAP) Pulse Ox O2 Delivery O2 Flow Rate FiO2 12/18/21 06:18 97.0 102 18 142/82 (102) 93 Room Air I & O 12/17/21 12/17/21 12/18/21 15:00 23:00 07:00 Intake Total 600 ml 360 ml Balance 600 ml 360 ml Current Medications: Meds: Current Medications Medications (Trade) Dose Ordered Sig/Elias Route PRN Reason Start Time Stop Time Status Last Admin Dose Admin Acetaminophen (Tylenol) 650 mg PRN Q6HRS PRN PO MILD PAIN / TEMP > 100.3'F 12/03/21 15:15 12/16/21 11:48 Multi-Ingredient Ointment (Analgesic [place]) 1 andie PRN QID PRN TP MUSCLE PAIN 12/03/21 15:15 Al Hydroxide/Mg Hydroxide (Mylanta Plus Xs) 15 ml PRN AFTMEALHC PRN PO DYSPEPSIA 12/03/21 15:15 Magnesium Hydroxide (Milk Of Magnesia) 2,400 mg PRN QHS PRN PO 1st choice CONSTIPATION 12/03/21 15:15 Diphenoxylate HCl/ Atropine (Lomotil) 1 tab PRN BID PRN PO DIARRHEA 12/03/21 16:15 Docusate Sodium (Colace) 100 mg PRN DAILY PRN PO 2ND CHOICE CONSTIPATION 12/03/21 16:15 Donepezil HCl (Aricept) 10 mg QHS PO 12/03/21 21:00 12/07/21 11:37 DC 12/06/21 21:06 Losartan Potassium (Cozaar) 50 mg DAILY PO 12/04/21 09:00 12/17/21 08:37 Memantine (Namenda) 5 mg QHS PO 12/03/21 21:00 12/07/21 11:37 DC 12/06/21 21:06 Simvastatin (Zocor) 40 mg DAILY PO 12/04/21 09:00 12/08/21 12:13 DC 12/07/21 08:03 Vitamin D (Vitamin D3) 5,000 unit DAILY PO 12/04/21 09:00 12/17/21 08:36 Glucosamine/ Chondroitin (Glucosamine-Chondroitin 500/400mg) 1 cap DAILY PO 12/04/21 09:00 12/17/21 08:36 Multivitamins/ Calcium (Thera-M Plus) 1 tab DAILY PO 12/04/21 09:00 12/17/21 08:37 Acetaminophen/ Codeine Phosphate (Tylenol #3) 1 tab PRN BID PRN PO PAIN 12/03/21 17:00 Levofloxacin (Levaquin) 250 mg DAILY06 PO 12/06/21 12:15 12/08/21 12:13 DC 12/07/21 05:23 Lactobacillus Rhamnosus (Culturelle) 1 cap BID PO 12/08/21 21:00 12/17/21 20:36 Simvastatin (Zocor) 40 mg HS PO 12/08/21 21:00 12/17/21 20:37 Doxycycline Hyclate (Vibra-Tab) 100 mg BID PO 12/08/21 21:00 12/13/21 12:00 DC 12/13/21 08:11 Olanzapine (ZyPREXA ZYDIS) 2.5 mg PRN Q2HR PRN PO PSYCHOSIS 12/10/21 12:00 12/18/21 00:32 Mirtazapine (Remeron) 7.5 mg QHS PO 12/10/21 21:00 12/17/21 20:36 Trazodone HCl (Desyrel) 50 mg PRN QHS PRN PO INSOMNIA 12/10/21 12:00 12/17/21 20:37 Sertraline HCl (Zoloft) 25 mg QHS PO 12/12/21 21:00 12/14/21 23:00 DC 12/14/21 20:34 Sertraline HCl (Zoloft) 50 mg QHS PO 12/15/21 21:00 12/17/21 17:38 DC 12/16/21 20:19 Quetiapine Fumarate (SEROquel) 12.5 mg 1700 PO 12/13/21 17:00 12/17/21 17:24 Sertraline HCl (Zoloft) 75 mg QHS PO 12/17/21 21:00 12/17/21 20:37 Current Medications Medications (Trade) Dose Ordered Sig/Elias Route PRN Reason Start Time Stop Time Status Last Admin Dose Admin Sertraline HCl (Zoloft) 75 mg QHS PO 12/17/21 21:00 12/17/21 20:37 I have reviewed the current psychotropics carefully including drug interactions. Risk benefit ratio favors no change other than as noted in my dictated progress note. Diagnosis: Problems: (1) Impulse control disorder, unspecified (2) Anxiety disorder, unspecified (3) Dementia in Alzheimer's disease with depression (4) Dementia in Alzheimer's disease with delusions (5) Dementia of the Alzheimer's type with early onset with behavioral disturbance (6) Major neurocognitive disorder MANDY RODRIGUEZ MD Dec 18, 2021 08:14
[2021-12-18] MEDS: GLUCOSAMINE/CHOND 500/400MG CAPSULE PO SCH (09:00)
[2021-12-18] MEDS: LOSARTAN 50 MG TABLET. PO SCH (09:00)
[2021-12-18] MEDS: MULTIVITAMIN with MINERAL TABLET. PO SCH (09:00)
[2021-12-18] MEDS: LACTOBACILLUS RHAMNOSUS GG 1 CAPSULE. PO SCH ×2 (09:00→20:00)
[2021-12-18] MEDS: CHOLECALCIFEROL (VITAMIN D3) 1,000 UNIT TABLET PO SCH (09:00)
--- NOTE | 2021-12-18 12:30 | NUR ---
PHILLIP contacted pt /DPOA, Vinny, to discuss discharge for pt on . PHILLIP informed Vinny that pt will need to have a follow up with her PCP, in which Vinny requested to set up the appointment himself. PHILLIP noted that pt would also need to see either a psychiatrist or a neurologist to continue to follow pt Dementia progression and the medications. Vinny will see if [facility] has one on staff. PHILLIP noted that there is a neurologist here in town if [place] does not have one. Vinny will contact his private duty company as well to make sure they can provide care the day pt arrives. PHILLIP discussed the medications for pt and reiterated that he would pick pt up around 1300, in which Vinny agreed. PHILLIP encouraged Vinny to call PHILLIP if he had any further follow-up questions or concerns.
--- NOTE | 2021-12-18 12:59 | NUR ---
Nurse Day Shift Note: Pt presents with disorganized mood/affect. Pt is not able to voice intelligible dialogue. Pt is generally confused. Pt did not have morning medications, as she was sleeping, after having slept for zero hours last night. Pt continues to need assistance and encouragement with eating. Will continue to monitor.
[2021-12-18 16:23] VITALS: BP 109/68
[2021-12-18] MEDS: QUEtiapine 25 MG TABLET. PO SCH (16:24)
--- NOTE | 2021-12-18 16:38 | NUR ---
When pt was being assisted by staff with drinking her gatorade, pt was being resistive and combative. Pt was continued to be encouraged to drink by staff and pt drank fluids.
[2021-12-18] MEDS: SERTRALINE 50 MG TABLET. PO SCH (20:00)
[2021-12-18] MEDS: MIRTAZAPINE 7.5 MG TABLET. PO SCH (20:00)
[2021-12-18] MEDS: SIMVASTATIN 40 MG TABLET. PO SCH (20:00)
[2021-12-18] MEDS: traZODone 50 MG TABLET. PO PRN (20:01)
--- NOTE | 2021-12-18 21:45 | PDOC ---
Exam Note: Donavon Note: Please also refer to the separate dictated note~for this date of service dictated separately.~Patient seen individually. Discussed the patient with Nursing staff reviewed the chart.~Reviewed interim history and current functioning. Reviewed vital signs,~Labs/ Radiology~and current medications noted below. Continue current treatment with the changes noted in the dictated addendum note Assessment: Vital Signs/I&O: Vital Signs Date Time Temp Pulse Resp B/P (MAP) Pulse Ox O2 Delivery O2 Flow Rate FiO2 12/18/21 16:23 97.8 63 16 109/68 (82) 95 12/18/21 06:18 Room Air I & O 12/17/21 12/17/21 12/18/21 15:00 23:00 07:00 Intake Total 600 ml 360 ml Balance 600 ml 360 ml Labs: Laboratory Tests Test 12/18/21 06:30 SARS-CoV-2 (PCR) Not detected (NOT DETECTD) Current Medications: Meds: Laboratory Tests Test 12/18/21 06:30 Coronavirus (COVID-19)(PCR) Not detected Current Medications Medications (Trade) Dose Ordered Sig/Elias Route PRN Reason Start Time Stop Time Status Last Admin Dose Admin Acetaminophen (Tylenol) 650 mg PRN Q6HRS PRN PO MILD PAIN / TEMP > 100.3'F 12/03/21 15:15 12/16/21 11:48 Multi-Ingredient Ointment (Analgesic [place]) 1 andie PRN QID PRN TP MUSCLE PAIN 12/03/21 15:15 Al Hydroxide/Mg Hydroxide (Mylanta Plus Xs) 15 ml PRN AFTMEALHC PRN PO DYSPEPSIA 12/03/21 15:15 Magnesium Hydroxide (Milk Of Magnesia) 2,400 mg PRN QHS PRN PO 1st choice CONSTIPATION 12/03/21 15:15 Diphenoxylate HCl/ Atropine (Lomotil) 1 tab PRN BID PRN PO DIARRHEA 12/03/21 16:15 Docusate Sodium (Colace) 100 mg PRN DAILY PRN PO 2ND CHOICE CONSTIPATION 12/03/21 16:15 Donepezil HCl (Aricept) 10 mg QHS PO 12/03/21 21:00 12/07/21 11:37 DC 12/06/21 21:06 Losartan Potassium (Cozaar) 50 mg DAILY PO 12/04/21 09:00 12/17/21 08:37 Memantine (Namenda) 5 mg QHS PO 12/03/21 21:00 12/07/21 11:37 DC 12/06/21 21:06 Simvastatin (Zocor) 40 mg DAILY PO 12/04/21 09:00 12/08/21 12:13 DC 12/07/21 08:03 Vitamin D (Vitamin D3) 5,000 unit DAILY PO 12/04/21 09:00 12/17/21 08:36 Glucosamine/ Chondroitin (Glucosamine-Chondroitin 500/400mg) 1 cap DAILY PO 12/04/21 09:00 12/17/21 08:36 Multivitamins/ Calcium (Thera-M Plus) 1 tab DAILY PO 12/04/21 09:00 12/17/21 08:37 Acetaminophen/ Codeine Phosphate (Tylenol #3) 1 tab PRN BID PRN PO PAIN 12/03/21 17:00 Levofloxacin (Levaquin) 250 mg DAILY06 PO 12/06/21 12:15 12/08/21 12:13 DC 12/07/21 05:23 Lactobacillus Rhamnosus (Culturelle) 1 cap BID PO 12/08/21 21:00 12/18/21 20:00 Simvastatin (Zocor) 40 mg HS PO 12/08/21 21:00 12/18/21 20:00 Doxycycline Hyclate (Vibra-Tab) 100 mg BID PO 12/08/21 21:00 12/13/21 12:00 DC 12/13/21 08:11 Olanzapine (ZyPREXA ZYDIS) 2.5 mg PRN Q2HR PRN PO PSYCHOSIS 12/10/21 12:00 12/18/21 00:32 Mirtazapine (Remeron) 7.5 mg QHS PO 12/10/21 21:00 12/18/21 20:00 Trazodone HCl (Desyrel) 50 mg PRN QHS PRN PO INSOMNIA 12/10/21 12:00 12/18/21 20:01 Sertraline HCl (Zoloft) 25 mg QHS PO 12/12/21 21:00 12/14/21 23:00 DC 12/14/21 20:34 Sertraline HCl (Zoloft) 50 mg QHS PO 12/15/21 21:00 12/17/21 17:38 DC 12/16/21 20:19 Quetiapine Fumarate (SEROquel) 12.5 mg 1700 PO 12/13/21 17:00 12/18/21 16:24 Sertraline HCl (Zoloft) 75 mg QHS PO 12/17/21 21:00 12/18/21 20:00 I have reviewed the current psychotropics carefully including drug interactions. Risk benefit ratio favors no change other than as noted in my dictated progress note. Diagnosis: Problems: (1) Impulse control disorder, unspecified (2) Anxiety disorder, unspecified (3) Dementia in Alzheimer's disease with depression (4) Dementia in Alzheimer's disease with delusions (5) Dementia of the Alzheimer's type with early onset with behavioral disturbance (6) Major neurocognitive disorder MANDY RODRIGUEZ MD Dec 18, 2021 21:45
--- NOTE | 2021-12-18 23:07 | NUR ---
Pt located in her room this evening sleeping in bed. Cooperative when woken up to administer HS medications. Pt currently sleeping.
[2021-12-19 05:29] VITALS: BP 130/78
--- NOTE | 2021-12-19 07:16 | NUR ---
Pt did not void overnight. Bladder scan performed revealing >510cc. Straight cath performed with staff x4. Pt was combative and resistive initially but calmed down. 750cc urine obtained. UA sent to lab.
--- NOTE | 2021-12-19 08:16 | PDOC ---
Exam Note: Donavon Note: This note is a late entry for 12/18/2021 covers elements not covered in my initial note. Subjective: The patient was reviewed on 12/18/2021 with Coral NATH, discussed and reviewed the chart. The patient slept 0 hours previous night but we will make sure she receives the Remeron 7.5 mg h.s. and trazodone 50 mg h.s. tonight to help her sleep. She has been disorganized having severe urinary retention. We will defer to Dr. Joya. Review of Systems: Per nursing report, no CV, , pulmonary, eye, ENT system symptoms on review. Reliability poor. Mental Status Exam: The patient is oriented to herself. Insight and judgment, recent and remote memory, attention and concentration, fund of knowledge is poor consistent with her diagnoses. Laboratory Data: Reviewed. Impression: Major neurocognitive disorder, Alzheimer, vascular with delusion, depression behavioral disturbance. Anxiety disorder unspecified. Impulse control disorder unspecified. Plan: No change from initial note. Assessment: Vital Signs/I&O: Vital Signs Date Time Temp Pulse Resp B/P (MAP) Pulse Ox O2 Delivery O2 Flow Rate FiO2 12/19/21 05:29 98.6 84 18 130/78 (95) 96 12/18/21 06:18 Room Air I & O 12/18/21 12/18/21 12/19/21 14:59 22:59 06:59 Intake Total 180 ml 240 ml Balance 180 ml 240 ml Current Medications: Meds: Current Medications Medications (Trade) Dose Ordered Sig/Elias Route PRN Reason Start Time Stop Time Status Last Admin Dose Admin Acetaminophen (Tylenol) 650 mg PRN Q6HRS PRN PO MILD PAIN / TEMP > 100.3'F 12/03/21 15:15 12/16/21 11:48 Multi-Ingredient Ointment (Analgesic [place]) 1 andie PRN QID PRN TP MUSCLE PAIN 12/03/21 15:15 Al Hydroxide/Mg Hydroxide (Mylanta Plus Xs) 15 ml PRN AFTMEALHC PRN PO DYSPEPSIA 12/03/21 15:15 Magnesium Hydroxide (Milk Of Magnesia) 2,400 mg PRN QHS PRN PO 1st choice CONSTIPATION 12/03/21 15:15 Diphenoxylate HCl/ Atropine (Lomotil) 1 tab PRN BID PRN PO DIARRHEA 12/03/21 16:15 Docusate Sodium (Colace) 100 mg PRN DAILY PRN PO 2ND CHOICE CONSTIPATION 12/03/21 16:15 Donepezil HCl (Aricept) 10 mg QHS PO 12/03/21 21:00 12/07/21 11:37 DC 12/06/21 21:06 Losartan Potassium (Cozaar) 50 mg DAILY PO 12/04/21 09:00 12/17/21 08:37 Memantine (Namenda) 5 mg QHS PO 12/03/21 21:00 12/07/21 11:37 DC 12/06/21 21:06 Simvastatin (Zocor) 40 mg DAILY PO 12/04/21 09:00 12/08/21 12:13 DC 12/07/21 08:03 Vitamin D (Vitamin D3) 5,000 unit DAILY PO 12/04/21 09:00 12/17/21 08:36 Glucosamine/ Chondroitin (Glucosamine-Chondroitin 500/400mg) 1 cap DAILY PO 12/04/21 09:00 12/17/21 08:36 Multivitamins/ Calcium (Thera-M Plus) 1 tab DAILY PO 12/04/21 09:00 12/17/21 08:37 Acetaminophen/ Codeine Phosphate (Tylenol #3) 1 tab PRN BID PRN PO PAIN 12/03/21 17:00 Levofloxacin (Levaquin) 250 mg DAILY06 PO 12/06/21 12:15 12/08/21 12:13 DC 12/07/21 05:23 Lactobacillus Rhamnosus (Culturelle) 1 cap BID PO 12/08/21 21:00 12/18/21 20:00 Simvastatin (Zocor) 40 mg HS PO 12/08/21 21:00 12/18/21 20:00 Doxycycline Hyclate (Vibra-Tab) 100 mg BID PO 12/08/21 21:00 12/13/21 12:00 DC 12/13/21 08:11 Olanzapine (ZyPREXA ZYDIS) 2.5 mg PRN Q2HR PRN PO PSYCHOSIS 12/10/21 12:00 12/19/21 00:32 Mirtazapine (Remeron) 7.5 mg QHS PO 12/10/21 21:00 12/18/21 20:00 Trazodone HCl (Desyrel) 50 mg PRN QHS PRN PO INSOMNIA 12/10/21 12:00 12/18/21 20:01 Sertraline HCl (Zoloft) 25 mg QHS PO 12/12/21 21:00 12/14/21 23:00 DC 12/14/21 20:34 Sertraline HCl (Zoloft) 50 mg QHS PO 12/15/21 21:00 12/17/21 17:38 DC 12/16/21 20:19 Quetiapine Fumarate (SEROquel) 12.5 mg 1700 PO 12/13/21 17:00 12/18/21 16:24 Sertraline HCl (Zoloft) 75 mg QHS PO 12/17/21 21:00 12/18/21 20:00 I have reviewed the current psychotropics carefully including drug interactions. Risk benefit ratio favors no change other than as noted in my dictated progress note. Diagnosis: Problems: (1) Impulse control disorder, unspecified (2) Anxiety disorder, unspecified (3) Dementia in Alzheimer's disease with depression (4) Dementia in Alzheimer's disease with delusions (5) Dementia of the Alzheimer's type with early onset with behavioral disturbance (6) Major neurocognitive disorder MANDY RODRIGUEZ MD Dec 19, 2021 08:16
[2021-12-19 09:25] LABS: BILIRUBIN,URINE NEG (NEG); CLARITY,URINE CLOUDY; COLOR,URINE YELLOW; GLUCOSE,URINE NEG (NEG); NITRITE,URINE NEG (NEG); UROBILINOGEN,URINE 0.2 mg/dL (0.2 mg/dL)
[2021-12-19 09:26] LABS: BACTERIA,URINE 0 /HPF (0-FEW); HYALINE CASTS, URINE OCC /HPF; RBC,URINE OCC /HPF (0-2); SQUAMOUS EPITHELIAL CELL,UR MOD /LPF
[2021-12-19] MEDS: LACTOBACILLUS RHAMNOSUS GG 1 CAPSULE. PO SCH ×2 (12:24→20:11)
[2021-12-19] MEDS: GLUCOSAMINE/CHOND 500/400MG CAPSULE PO SCH (12:24)
[2021-12-19] MEDS: MULTIVITAMIN with MINERAL TABLET. PO SCH (12:24)
[2021-12-19] MEDS: LOSARTAN 50 MG TABLET. PO SCH (12:25)
[2021-12-19] MEDS: CHOLECALCIFEROL (VITAMIN D3) 1,000 UNIT TABLET PO SCH (12:25)
--- NOTE | 2021-12-19 12:52 | NUR ---
[facility] Social Work Discharge Planning Form Patient Name VANESSA SPAULDING Admit Date: 03 December 2021 DISCHARGE PLAN Discharge Destination: Pt to discharge home with Care Assessment: N/A Level II Assessment: N/A Transportation: Pt to pick pt up around 1300 Special Instructions/Notes: Please fax discharge orders, discharge medications and discharge summary to the fax numbers listed below. DISCHARGE TO HOME: Address: [address] [place] [address]; [place] [address] Responsible [employer]: Vinny Spaulding Pharmacy: [facility] Contact Information: [address] [place] [address], [place] [address] Psychiatrist/Mental Health Follow Up: Neurologist at [facility] -- specialty clinic with either Dr. Escalante or Dr. Hernandez Contact Information: [address] [place] [address] Appointment: to set up follow-up appt. Primary Care Follow Up: Dr. Beach Contact Information: [address], [place] [id number] Appointment: to set up follow up appt. Home Health/Private Duty: [facility] Contact Information: [address], [place] [address] Appointment: Will set up home services with pt .
[2021-12-19 15:48] VITALS: BP 124/85
[2021-12-19] MEDS: QUEtiapine 25 MG TABLET. PO SCH (16:36)
--- NOTE | 2021-12-19 18:30 | NUR ---
Patient slept in late in the morning and was mostly drowsy for the early afternoon with poor appetite. She has been disorganized, cooperative, and pleasantly confused for the majority of this shift. She was more alert after supper but still ate very little at supper. Will continue to monitor and report to oncoming shift.
--- NOTE | 2021-12-19 19:40 | NUR ---
Patient has not urinated today. Bladderscanned patient, largest amount detected was ~170mL. Will report to oncoming shift.
[2021-12-19] MEDS: MIRTAZAPINE 7.5 MG TABLET. PO SCH (20:10)
[2021-12-19] MEDS: SIMVASTATIN 40 MG TABLET. PO SCH (20:11)
[2021-12-19] MEDS: SERTRALINE 50 MG TABLET. PO SCH (20:11)
--- NOTE | 2021-12-19 21:29 | PDOC ---
Exam Note: Donavon Note: Please also refer to the separate dictated note~for this date of service dictated separately.~Patient seen individually. Discussed the patient with Nursing staff reviewed the chart.~Reviewed interim history and current functioning. Reviewed vital signs,~Labs/ Radiology~and current medications noted below. Continue current treatment with the changes noted in the dictated addendum note Assessment: Vital Signs/I&O: Vital Signs Date Time Temp Pulse Resp B/P (MAP) Pulse Ox O2 Delivery O2 Flow Rate FiO2 12/19/21 15:48 98.0 68 18 124/85 (98) 92 0.0 12/18/21 06:18 Room Air I & O 12/18/21 12/18/21 12/19/21 15:00 23:00 07:00 Intake Total 180 ml 240 ml Balance 180 ml 240 ml Labs: Laboratory Tests Test 12/19/21 07:00 Urine Collection Type U cath Urine Color Yellow Urine Clarity Cloudy Urine pH 6.5 Urine Specific Mckenzie 1.025 Urine Protein Neg (NEG-TRACE) Urine Glucose (UA) Neg mg/dL (NEG) Urine Ketones (Stick) Neg mg/dL (NEG) Urine Blood Neg (NEG) Urine Nitrite Neg (NEG) Urine Bilirubin Neg (NEG) Urine Urobilinogen Dipstick 0.2 mg/dL (0.2 mg/dL) Urine Leukocyte Esterase Neg (NEG) Urine RBC Occ /HPF (0-2) Urine WBC 5-10 /HPF (0-4) Urine Squamous Epithelial Cells Mod /LPF Urine Bacteria 0 /HPF (0-FEW) Urine Hyaline Casts Occ /HPF Urine Mucus Slight /LPF Current Medications: Meds: Laboratory Tests Test 12/19/21 07:00 Urine Collection Type U cath Urine Color Yellow Urine Clarity Cloudy Urine pH 6.5 Urine Specific [place]ck[place] 1.025 Urine Protein Neg Urine Glucose (UA) Neg mg/dL Urine Ketones (Stick) Neg mg/dL Urine Blood Neg Urine Nitrite Neg Urine Bilirubin Neg Urine Urobilinogen Dipstick 0.2 mg/dL Urine Leukocyte Esterase Neg Urine RBC Occ /HPF Urine WBC 5-10 /HPF Urine Squamous Epithelial Cells Mod /LPF Urine Bacteria 0 /HPF Urine Hyaline Casts Occ /HPF Urine Mucus Slight /LPF Current Medications Medications (Trade) Dose Ordered Sig/Elias Route PRN Reason Start Time Stop Time Status Last Admin Dose Admin Acetaminophen (Tylenol) 650 mg PRN Q6HRS PRN PO MILD PAIN / TEMP > 100.3'F 12/03/21 15:15 12/16/21 11:48 Multi-Ingredient Ointment (Analgesic [place]) 1 andie PRN QID PRN TP MUSCLE PAIN 12/03/21 15:15 Al Hydroxide/Mg Hydroxide (Mylanta Plus Xs) 15 ml PRN AFTMEALHC PRN PO DYSPEPSIA 12/03/21 15:15 Magnesium Hydroxide (Milk Of Magnesia) 2,400 mg PRN QHS PRN PO 1st choice CONSTIPATION 12/03/21 15:15 Diphenoxylate HCl/ Atropine (Lomotil) 1 tab PRN BID PRN PO DIARRHEA 12/03/21 16:15 Docusate Sodium (Colace) 100 mg PRN DAILY PRN PO 2ND CHOICE CONSTIPATION 12/03/21 16:15 Donepezil HCl (Aricept) 10 mg QHS PO 12/03/21 21:00 12/07/21 11:37 DC 12/06/21 21:06 Losartan Potassium (Cozaar) 50 mg DAILY PO 12/04/21 09:00 12/19/21 12:25 Memantine (Namenda) 5 mg QHS PO 12/03/21 21:00 12/07/21 11:37 DC 12/06/21 21:06 Simvastatin (Zocor) 40 mg DAILY PO 12/04/21 09:00 12/08/21 12:13 DC 12/07/21 08:03 Vitamin D (Vitamin D3) 5,000 unit DAILY PO 12/04/21 09:00 12/19/21 12:25 Glucosamine/ Chondroitin (Glucosamine-Chondroitin 500/400mg) 1 cap DAILY PO 12/04/21 09:00 12/19/21 12:24 Multivitamins/ Calcium (Thera-M Plus) 1 tab DAILY PO 12/04/21 09:00 12/19/21 12:24 Acetaminophen/ Codeine Phosphate (Tylenol #3) 1 tab PRN BID PRN PO PAIN 12/03/21 17:00 Levofloxacin (Levaquin) 250 mg DAILY06 PO 12/06/21 12:15 12/08/21 12:13 DC 12/07/21 05:23 Lactobacillus Rhamnosus (Culturelle) 1 cap BID PO 12/08/21 21:00 12/19/21 20:11 Simvastatin (Zocor) 40 mg HS PO 12/08/21 21:00 12/19/21 20:11 Doxycycline Hyclate (Vibra-Tab) 100 mg BID PO 12/08/21 21:00 12/13/21 12:00 DC 12/13/21 08:11 Olanzapine (ZyPREXA ZYDIS) 2.5 mg PRN Q2HR PRN PO PSYCHOSIS 12/10/21 12:00 12/19/21 00:32 Mirtazapine (Remeron) 7.5 mg QHS PO 12/10/21 21:00 12/19/21 20:10 Trazodone HCl (Desyrel) 50 mg PRN QHS PRN PO INSOMNIA 12/10/21 12:00 12/18/21 20:01 Sertraline HCl (Zoloft) 25 mg QHS PO 12/12/21 21:00 12/14/21 23:00 DC 12/14/21 20:34 Sertraline HCl (Zoloft) 50 mg QHS PO 12/15/21 21:00 12/17/21 17:38 DC 12/16/21 20:19 Quetiapine Fumarate (SEROquel) 12.5 mg 1700 PO 12/13/21 17:00 12/19/21 16:36 Sertraline HCl (Zoloft) 75 mg QHS PO 12/17/21 21:00 12/19/21 20:11 I have reviewed the current psychotropics carefully including drug interactions. Risk benefit ratio favors no change other than as noted in my dictated progress note. Diagnosis: Problems: (1) Impulse control disorder, unspecified (2) Anxiety disorder, unspecified (3) Dementia in Alzheimer's disease with depression (4) Dementia in Alzheimer's disease with delusions (5) Dementia of the Alzheimer's type with early onset with behavioral disturbance (6) Major neurocognitive disorder MANDY RODRIGUEZ MD Dec 19, 2021 21:29
--- NOTE | 2021-12-19 22:57 | NUR ---
Patients called x2 this shift. Nurse discussed patients bladder scanning for urine retention with , patient is scheduled to discharge tomorrow. He stated he will be here at 1300 to picker packer patient. Patient has not been drinking very much fluids. Patient took medications crushed in pudding and then drank 100 ml water with encouragement. She is oriented only to herself. Patient was in bed this shift, no adverse behaviors noted.
[2021-12-19] MEDS ORDERED: ACET325T9 PO (23:35)
[2021-12-19] MEDS ORDERED: CHOL10004 PO (23:35)
[2021-12-19] MEDS ORDERED: MAG-115 PO (23:37)
[2021-12-19] MEDS ORDERED: LACT1CAP21 PO (23:37)
[2021-12-19] MEDS ORDERED: TROL86CR TP (23:38)
[2021-12-19] MEDS ORDERED: MAGN24003 PO (23:38)
[2021-12-19] MEDS ORDERED: MIRT-37 PO (23:39)
[2021-12-19] MEDS ORDERED: OLAN5TAB99 PO (23:40)
[2021-12-19] MEDS ORDERED: QUET25TA5 PO (23:41)
[2021-12-19] MEDS ORDERED: TRAZ-120 PO (23:42)
[2021-12-19] MEDS ORDERED: SERT50TA PO (23:42)
[2021-12-20 05:43] VITALS: BP 152/90
--- NOTE | 2021-12-20 06:24 | NUR ---
patients brief was dry this morning and she was unable to void into the toilet. Bladder scan showed 280 ml in bladder. Did not perform cath procedure. Will pass on in report.
[2021-12-20 08:31] VITALS: BP 152/90
[2021-12-20] MEDS: GLUCOSAMINE/CHOND 500/400MG CAPSULE PO SCH (08:31)
[2021-12-20] MEDS: LOSARTAN 50 MG TABLET. PO SCH (08:31)
[2021-12-20] MEDS: MULTIVITAMIN with MINERAL TABLET. PO SCH (08:31)
[2021-12-20] MEDS: CHOLECALCIFEROL (VITAMIN D3) 1,000 UNIT TABLET PO SCH (08:32)
[2021-12-20] MEDS: LACTOBACILLUS RHAMNOSUS GG 1 CAPSULE. PO SCH (08:37)
--- NOTE | 2021-12-20 13:11 | NUR ---
Nsg Note; urine retention pt has had some urinary retention. She did not void this am. At 1230, we put her on the toilet and she did not void. Bladder scan showed 300 ml urine. Straight cath performed at 1240 as pt is to discharge home at 1300. 300 ml urine obtained from straight cath.
--- NOTE | 2021-12-20 13:36 | NUR ---
Nsg Note; Discharge: Transition Record was faxed to follow-up provider with the following elements: Reason for admission, procedures, tests, principal diagnosis, pending studies, patient instructions, 23/06 contact information for unit, phone number to obtain pending test results, plan for follow-up care, physician follow-up, advanced directive information, and medication list with dose, duration and instructions. This information was included in the following documents: History and physical, lab results, study results, progress notes, social work planning form, DC instruction form, patient visit summary, and medication reconciliation form. Date & time record faxed: on 12/20/[address] Beach at 1319 @ [phone]; to Drs. Escalante & Mary at 1323 @ [phone]; to Luisa [facility] @ [phone] Record discussed with her daughter on pickup. Pt was discharged at 1315 via amb accomp by staff who walked her out to her daughter's car. All personal items sent with pt New prescriptions called to the [facility] pharmacy in [facility]: Angela, Mamadou zimmerman, Seroquel, Zoloft, and Trazadone.
--- NOTE | 2021-12-20 21:49 | PDOC ---
Exam Note: Donavon Note: Please also refer to the separate dictated note~for this date of service dictated separately.~Patient seen individually. Discussed the patient with Nursing staff reviewed the chart.~Reviewed interim history and current functioning. Reviewed vital signs,~Labs/ Radiology~and current medications noted below. Continue current treatment with the changes noted in the dictated addendum note Assessment: Vital Signs/I&O: Vital Signs Date Time Temp Pulse Resp B/P (MAP) Pulse Ox O2 Delivery O2 Flow Rate FiO2 12/20/21 08:31 91 152/90 12/20/21 05:43 98.4 18 96 12/19/21 15:48 0.0 12/18/21 06:18 Room Air I & O 12/19/21 12/19/21 12/20/21 15:00 23:00 07:00 Intake Total 480 ml 560 ml Output Total 750 ml Balance -270 ml 560 ml Current Medications: Meds: Current Medications Medications (Trade) Dose Ordered Sig/Elias Route PRN Reason Start Time Stop Time Status Last Admin Dose Admin Acetaminophen (Tylenol) 650 mg PRN Q6HRS PRN PO MILD PAIN / TEMP > 100.3'F 12/03/21 15:15 12/20/21 14:04 DC 12/16/21 11:48 Multi-Ingredient Ointment (Analgesic [place]) 1 andie PRN QID PRN TP MUSCLE PAIN 12/03/21 15:15 12/20/21 14:04 DC Al Hydroxide/Mg Hydroxide (Mylanta Plus Xs) 15 ml PRN AFTMEALHC PRN PO DYSPEPSIA 12/03/21 15:15 12/20/21 14:04 DC Magnesium Hydroxide (Milk Of Magnesia) 2,400 mg PRN QHS PRN PO 1st choice CONSTIPATION 12/03/21 15:15 12/20/21 14:04 DC Diphenoxylate HCl/ Atropine (Lomotil) 1 tab PRN BID PRN PO DIARRHEA 12/03/21 16:15 12/20/21 14:04 DC Docusate Sodium (Colace) 100 mg PRN DAILY PRN PO 2ND CHOICE CONSTIPATION 12/03/21 16:15 12/20/21 14:04 DC Donepezil HCl (Aricept) 10 mg QHS PO 12/03/21 21:00 12/07/21 11:37 DC 12/06/21 21:06 Losartan Potassium (Cozaar) 50 mg DAILY PO 12/04/21 09:00 12/20/21 14:04 DC 12/20/21 08:31 Memantine (Namenda) 5 mg QHS PO 12/03/21 21:00 12/07/21 11:37 DC 12/06/21 21:06 Simvastatin (Zocor) 40 mg DAILY PO 12/04/21 09:00 12/08/21 12:13 DC 12/07/21 08:03 Vitamin D (Vitamin D3) 5,000 unit DAILY PO 12/04/21 09:00 12/20/21 14:04 DC 12/20/21 08:32 Glucosamine/ Chondroitin (Glucosamine-Chondroitin 500/400mg) 1 cap DAILY PO 12/04/21 09:00 12/20/21 14:04 DC 12/20/21 08:31 Multivitamins/ Calcium (Thera-M Plus) 1 tab DAILY PO 12/04/21 09:00 12/20/21 14:04 DC 12/20/21 08:31 Acetaminophen/ Codeine Phosphate (Tylenol #3) 1 tab PRN BID PRN PO PAIN 12/03/21 17:00 12/20/21 14:04 DC Levofloxacin (Levaquin) 250 mg DAILY06 PO 12/06/21 12:15 12/08/21 12:13 DC 12/07/21 05:23 Lactobacillus Rhamnosus (Culturelle) 1 cap BID PO 12/08/21 21:00 12/20/21 14:04 DC 12/20/21 08:37 Simvastatin (Zocor) 40 mg HS PO 12/08/21 21:00 12/20/21 14:04 DC 12/19/21 20:11 Doxycycline Hyclate (Vibra-Tab) 100 mg BID PO 12/08/21 21:00 12/13/21 12:00 DC 12/13/21 08:11 Olanzapine (ZyPREXA ZYDIS) 2.5 mg PRN Q2HR PRN PO PSYCHOSIS 12/10/21 12:00 12/20/21 14:04 DC 12/19/21 00:32 Mirtazapine (Remeron) 7.5 mg QHS PO 12/10/21 21:00 12/20/21 14:04 DC 12/19/21 20:10 Trazodone HCl (Desyrel) 50 mg PRN QHS PRN PO INSOMNIA 12/10/21 12:00 12/20/21 14:04 DC 12/18/21 20:01 Sertraline HCl (Zoloft) 25 mg QHS PO 12/12/21 21:00 12/14/21 23:00 DC 12/14/21 20:34 Sertraline HCl (Zoloft) 50 mg QHS PO 12/15/21 21:00 12/17/21 17:38 DC 12/16/21 20:19 Quetiapine Fumarate (SEROquel) 12.5 mg 1700 PO 12/13/21 17:00 12/20/21 14:04 DC 12/19/21 16:36 Sertraline HCl (Zoloft) 75 mg QHS PO 12/17/21 21:00 12/20/21 14:04 DC 12/19/21 20:11 I have reviewed the current psychotropics carefully including drug interactions. Risk benefit ratio favors no change other than as noted in my dictated progress note. Diagnosis: Problems: (1) Impulse control disorder, unspecified (2) Anxiety disorder, unspecified (3) Dementia in Alzheimer's disease with depression (4) Dementia in Alzheimer's disease with delusions (5) Dementia of the Alzheimer's type with early onset with behavioral disturbance (6) Major neurocognitive disorder MANDY RODRIGUEZ MD Dec 20, 2021 21:49
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
--- NOTE | 2021-12-21 07:40 | PDOC ---
Exam Note: [place] Note: This note is a late entry for 12/19/2021 covers elements not covered in my initial note. Subjective: The patient was seen on telehealth rounds on 12/19/2021 with Jace NATH, discussed and reviewed the chart. The patient slept 8 hours previous night. She remains confused, calmer, restless, disorganized. She has not been agitated or aggressive. Review of Systems: No CV, , pulmonary, eye, ENT system symptoms on review. Reliability poor. Mental Status Exam: The patient is oriented to herself. Insight and judgment, recent and remote memory, attention and concentration, fund of knowledge is poor consistent with her diagnoses. Laboratory Data: Reviewed. Impression: Major neurocognitive disorder, Alzheimer, vascular with delusion, depression behavioral disturbance. Anxiety disorder unspecified. Impulse co ntrol disorder unspecified. Plan: No change from initial note. Overall she remains confused, not very verbally interactive, not aggressive. We will discharge home with outpatient psychiatric medical follow up on 12/20/2021 as the is unwilling to change the date despite her Covid-19 quarantine period. Assessment: Vital Signs/I&O: Vital Signs Date Time Temp Pulse Resp B/P (MAP) Pulse Ox O2 Delivery O2 Flow Rate FiO2 12/20/21 08:31 91 152/90 12/20/21 05:43 98.4 18 96 12/19/21 15:48 0.0 12/18/21 06:18 Room Air I & O 12/20/21 12/20/21 12/21/21 15:00 23:00 07:00 Intake Total 360 ml Balance 360 ml Current Medications: Meds: Current Medications Medications (Trade) Dose Ordered Sig/Elias Route PRN Reason Start Time Stop Time Status Last Admin Dose Admin Acetaminophen (Tylenol) 650 mg PRN Q6HRS PRN PO MILD PAIN / TEMP > 100.3'F 12/03/21 15:15 12/20/21 14:04 DC 12/16/21 11:48 Multi-Ingredient Ointment (Analgesic [place]) 1 andie PRN QID PRN TP MUSCLE PAIN 12/03/21 15:15 12/20/21 14:04 DC Al Hydroxide/Mg Hydroxide (Mylanta Plus Xs) 15 ml PRN AFTMEALHC PRN PO DYSPEPSIA 12/03/21 15:15 12/20/21 14:04 DC Magnesium Hydroxide (Milk Of Magnesia) 2,400 mg PRN QHS PRN PO 1st choice CONSTIPATION 12/03/21 15:15 12/20/21 14:04 DC Diphenoxylate HCl/ Atropine (Lomotil) 1 tab PRN BID PRN PO DIARRHEA 12/03/21 16:15 12/20/21 14:04 DC Docusate Sodium (Colace) 100 mg PRN DAILY PRN PO 2ND CHOICE CONSTIPATION 12/03/21 16:15 12/20/21 14:04 DC Donepezil HCl (Aricept) 10 mg QHS PO 12/03/21 21:00 12/07/21 11:37 DC 12/06/21 21:06 Losartan Potassium (Cozaar) 50 mg DAILY PO 12/04/21 09:00 12/20/21 14:04 DC 12/20/21 08:31 Memantine (Namenda) 5 mg QHS PO 12/03/21 21:00 12/07/21 11:37 DC 12/06/21 21:06 Simvastatin (Zocor) 40 mg DAILY PO 12/04/21 09:00 12/08/21 12:13 DC 12/07/21 08:03 Vitamin D (Vitamin D3) 5,000 unit DAILY PO 12/04/21 09:00 12/20/21 14:04 DC 12/20/21 08:32 Glucosamine/ Chondroitin (Glucosamine-Chondroitin 500/400mg) 1 cap DAILY PO 12/04/21 09:00 12/20/21 14:04 DC 12/20/21 08:31 Multivitamins/ Calcium (Thera-M Plus) 1 tab DAILY PO 12/04/21 09:00 12/20/21 14:04 DC 12/20/21 08:31 Acetaminophen/ Codeine Phosphate (Tylenol #3) 1 tab PRN BID PRN PO PAIN 12/03/21 17:00 12/20/21 14:04 DC Levofloxacin (Levaquin) 250 mg DAILY06 PO 12/06/21 12:15 12/08/21 12:13 DC 12/07/21 05:23 Lactobacillus Rhamnosus (Culturelle) 1 cap BID PO 12/08/21 21:00 12/20/21 14:04 DC 12/20/21 08:37 Simvastatin (Zocor) 40 mg HS PO 12/08/21 21:00 12/20/21 14:04 DC 12/19/21 20:11 Doxycycline Hyclate (Vibra-Tab) 100 mg BID PO 12/08/21 21:00 12/13/21 12:00 DC 12/13/21 08:11 Olanzapine (ZyPREXA ZYDIS) 2.5 mg PRN Q2HR PRN PO PSYCHOSIS 12/10/21 12:00 12/20/21 14:04 DC 12/19/21 00:32 Mirtazapine (Remeron) 7.5 mg QHS PO 12/10/21 21:00 12/20/21 14:04 DC 12/19/21 20:10 Trazodone HCl (Desyrel) 50 mg PRN QHS PRN PO INSOMNIA 12/10/21 12:00 12/20/21 14:04 DC 12/18/21 20:01 Sertraline HCl (Zoloft) 25 mg QHS PO 12/12/21 21:00 12/14/21 23:00 DC 12/14/21 20:34 Sertraline HCl (Zoloft) 50 mg QHS PO 12/15/21 21:00 12/17/21 17:38 DC 12/16/21 20:19 Quetiapine Fumarate (SEROquel) 12.5 mg 1700 PO 12/13/21 17:00 12/20/21 14:04 DC 12/19/21 16:36 Sertraline HCl (Zoloft) 75 mg QHS PO 12/17/21 21:00 12/20/21 14:04 DC 12/19/21 20:11 I have reviewed the current psychotropics carefully including drug interactions. Risk benefit ratio favors no change other than as noted in my dictated progress note. Diagnosis: Problems: (1) Impulse control disorder, unspecified (2) Anxiety disorder, unspecified (3) Dementia in Alzheimer's disease with depression (4) Dementia in Alzheimer's disease with delusions (5) Dementia of the Alzheimer's type with early onset with behavioral disturbance (6) Major neurocognitive disorder MANDY RODRIGUEZ MD Dec 21, 2021 07:40
--- NOTE | 2021-12-22 07:18 | CONS ---
DATE OF CONSULTATION: 12/20/2021 REASON FOR CONSULTATION: Medical management. HISTORY OF PRESENT ILLNESS: The patient is an 81-year-old female patient who was admitted to [facility] from home. She was living with her and also having some home health care. The patient has become very delusional, agitated and scared and upset because she thought the caregivers are trying to kill her and also hitting the caregiver's, threatening caregivers with a fork and being hysterical. The patient is unable to give much information on admission. PAST MEDICAL HISTORY: Significant for recurrent UTIs. She has chronic back pain that required neurotransmitter. She has scoliosis, hyperlipidemia and abnormal PAP smear. PAST SURGICAL HISTORY: Significant for neurotransmitter stimulator placement. FAMILY HISTORY: Noncontributory. SOCIAL HISTORY: She is and lives with her . She apparently does drink, although the extent of the drinking is unknown. ALLERGIES: SHE IS ALLERGIC TO PENICILLIN. MEDICATIONS: She was on the following medications: She is on simvastatin 40 mg at bedtime, losartan potassium 50 mg daily, trolamine salicylate 1 application 4 times a day, Tylenol with codeine one tablet twice a day, acetaminophen 650 mg every 6 hours, mirtazapine 7.5 mg at bedtime, sertraline 75 mg p.o. at bedtime, trazodone 50 mg p.o. at bedtime, olanzapine 2.5 mg every 2 hours, Seroquel 12.5 mg daily. She is on Mylanta maximum strength 15 mL after meals and as needed, diphenoxylate/atropine one tablet twice a day. She is on Colace 100 mg twice a day, magnesium hydroxide for milk of magnesia 30 mL p.o. daily p.r.n. for constipation, lactobacillus rhamnosus 1 capsule twice a day. She is on ergocalciferol for vitamin D3 5000 units once a day and multivitamin 1 tablet once a day and glucosamine, chondroitin sulfate 1 capsule once a day. REVIEW OF SYSTEMS: As per history of present illness. PHYSICAL EXAMINATION: GENERAL: On examining her, she looked well and was clearly in no apparent respiratory distress. There was no pallor, jaundice, cyanosis or thyromegaly. No jugular venous distention. No limb edema. VITAL SIGNS: Her heart rate was 83, blood pressure is 136/80, temperature was 97.5, respiratory rate 20, and oxygen saturation was 96% on room air. HEAD, EYES, EARS, NOSE, AND THROAT: Normocephalic, atraumatic. NECK: Supple. HEART: Showed normal first and second heart sounds. No gallop, rub or murmur. CHEST: Clear to auscultation, no crepitation or rhonchi. ABDOMEN: Distended, soft, nontender. NEUROLOGIC: She is demented without any obvious lateralizing sign. LABORATORY DATA: On admission showed a white cell count of 7,800, hemoglobin 12, hematocrit 35, MCV 91, and platelet count of 331,000 with normal manual differential. Her chemistry showed a serum sodium 135, potassium 4, chloride 99, bicarbonate 27, anion gap of 9, BUN 25, creatinine 0.8. Estimated GFR was 68 mL per minute. Her glucose 109, calcium was 8.7, magnesium was 2.1. Total bilirubin, AST, ALT, alkaline phosphatase were normal. His serum iron was 45, TIBC was 331 and iron saturation was 14%. Her serum triglycerides were 96. Total cholesterol 212, LDL cholesterol was 147, VLDL was 19, HDL was 46 and the ratio was 4. Her TSH was 3.206, vitamin B12 was 473 picograms per mL and her total T4 was normal at 8.4 and her total T3 was normal at 90 ng/mL. ASSESSMENT AND PLAN: All in all, the patient is an 81-year-old female patient who was admitted from home with increasingly being delusional, agitated and scared and upset because that she thought caregivers are trying to kill her and also hitting the caregivers and threatening them. Medically, the patient seems to be overall stable. Her vital signs are all within normal range and her lab work also within acceptable range. I will continue with all current medications and follow. All her lab works are still pending at the time of this dictation. Thank you, Dr. Junior for allowing me to participate in the care of this patient. GEORGIE ROCHA: Hong TID: [id number]
== END 2021-12-20 13:15 | disposition home health service (06) | DRG 57 ==
LOC: GEROPSY 13:15
PROVIDERS: ADMIT Psychiatry & Neurology Psychiatry; ATTEND Psychiatry & Neurology Psychiatry
DX: G30.9 Alzheimer's disease, unspecified (principal); F02.81 Dementia in other diseases classified elsewhere, unspecified severity, with behavioral disturbance; N39.0 Urinary tract infection, site not specified; Z20.822 Contact with and (suspected) exposure to COVID-19; R15.9 Full incontinence of feces; E78.5 Hyperlipidemia, unspecified; H91.90 Unspecified hearing loss, unspecified ear; R26.81 Unsteadiness on feet; F63.9 Impulse disorder, unspecified; F32.A Depression, unspecified; G89.29 Other chronic pain; M54.9 Dorsalgia, unspecified; R45.87 Impulsiveness; R40.0 Somnolence; R63.30 Feeding difficulties, unspecified; F41.1 Generalized anxiety disorder; G47.00 Insomnia, unspecified; M41.9 Scoliosis, unspecified; R45.1 Restlessness and agitation; R32 Unspecified urinary incontinence; Z87.440 Personal history of urinary (tract) infections; Z96.82 Presence of neurostimulator; Z79.899 Other long term (current) drug therapy; Z88.0 Allergy status to penicillin; Z91.83 Wandering in diseases classified elsewhere
CPT/HCPCS: 36415; 80053; 80061; 81001; 82306; 82607; 83036; 83540; 83550; 83735; 84436; 84443; 84480; 85025; 85379; 86592; 87077; 87086; 87186; 93005; U0003; 97530